=== PATIENT | female | born 1960 | race Two or more races ===

== ENCOUNTER 2020-03-31 15:37 | Inpatient (IN) | payer MEDICAID, OTHER ==
[~2020-03-31] VITALS: Ht 157.5 cm; Wt 68.2 kg
[2020-03-31 18:17] LABS: Basophils # (auto) 0 10 ^3/uL (0-0.2); Basophils % (auto) 0.1 % (0.0-2.0); Eosinophils # (auto) 0 10 ^3/uL (0-0.8); Hemoglobin 12.4 g/dL (12.2-16.2); Lymphocytes # (auto) 0.7 10 ^3/uL (0.4-5.4); Lymphocytes % (auto) 11.8 % (10.0-50.0); Mean Corpuscular Hemoglobin 32.9 pg (28.0-32.0); Mean Corpuscular Hgb Conc. 34.5 g/dL (32.0-36.0); Mean Corpuscular Volume 95.3 fL (80.0-100.0); Monocytes # (auto) 0.3 10 ^3/uL (0-1.3); Monocytes % (auto) 5.3 % (0.0-12.0); Neutrophils # (auto) 5.1 10 ^3/uL (1.6-8.6); Neutrophils % (auto) 82.8 % (37.0-80.0); Nucleated Red Blood Cells % 0.1 %; Platelet Count (auto) 143 10^3/uL (140-450); Red Blood Cells 3.78 10^6/uL (4.0-5.20); Red Cell Distribution Width 12.7 % (11.8-14.3); White Blood Cell 6.2 10^3/uL (4.4-10.8)
[2020-03-31 18:22] LABS: Albumin 3.5 g/dL (3.4-5.0); Anion Gap 11 (5-15); Blood Urea Nitrogen 10 mg/dL (7-18); Calcium 8.5 mg/dL (8.5-10.1); Carbon Dioxide 20 mmol/L (21-32); Chloride 101 mmol/L (98-107); Glucose 120 mg/dL (74-106); Potassium 3.6 mmol/L (3.5-5.1); Sodium 132 mmol/L (136-145)
[2020-03-31 18:24] LABS: Alanine Aminotransferase 12 U/L (13-56); BUN/Creatinine Ratio 16.7; GFR African American 133 mL/min; GFR Non-African American 110 mL/min
[2020-03-31 18:25] LABS: INR 0.91 (0.9-1.15)
[2020-03-31 18:36] LABS: Alkaline Phosphatase 95 U/L (45-117); Aspartate Aminotransferase 52 U/L (15-37); Bilirubin, Total 0.6 mg/dL (0.2-1.0); Total Protein 7.4 g/dL (6.4-8.2)
[2020-03-31 18:38] LABS: Magnesium 2.3 mg/dL (1.6-2.6)
[2020-03-31] MEDS ORDERED: REMDESIVIR PER PHARMACY 0 ML IV STA (22:21)
[2020-03-31] MEDS ORDERED: DexAMETHasone SOD PHOS 10MG/1ML VIAL INJ IV ONE (22:30)
[2020-03-31] MEDS ORDERED: NITROGLYCERIN 0.4 MG SL TAB SL PRN (23:30)
[2020-03-31] MEDS ORDERED: AZITHROMYCIN 500MG/D5WorNS 250ml IV SCH (23:30)
[2020-03-31] MEDS ORDERED: ONDANSETRON HCL 4 MG/2 ML VIAL IV PRN (23:30)
[2020-03-31] MEDS ORDERED: MORPHINE SULF INJ 2 MG/ML SYRINGE 1ML IV PRN (23:30)
[2020-04-01] MEDS ORDERED: DexAMETHasone SOD PHOS 4 MG/1ML SDV INJ ONE (00:03)
[2020-04-01 07:30] LABS: Basophils # (auto) 0 10 ^3/uL (0-0.2); Basophils % (auto) 0.1 % (0.0-2.0); Eosinophils # (auto) 0 10 ^3/uL (0-0.8); Hematocrit 37.2 % (36.0-46.0); Hemoglobin 12.6 g/dL (12.2-16.2); Lymphocytes # (auto) 0.3 10 ^3/uL (0.4-5.4); Lymphocytes % (auto) 7.1 % (10.0-50.0); Mean Corpuscular Hemoglobin 33.1 pg (28.0-32.0); Mean Corpuscular Hgb Conc. 33.8 g/dL (32.0-36.0); Mean Corpuscular Volume 98.1 fL (80.0-100.0); Monocytes # (auto) 0.1 10 ^3/uL (0-1.3); Monocytes % (auto) 3.2 % (0.0-12.0); Neutrophils # (auto) 4.1 10 ^3/uL (1.6-8.6); Neutrophils % (auto) 89.6 % (37.0-80.0); Platelet Count (auto) 138 10^3/uL (140-450); Red Cell Distribution Width 13.1 % (11.8-14.3); White Blood Cell 4.5 10^3/uL (4.4-10.8)
[2020-04-01 08:20] LABS: Albumin 3.2 g/dL (3.4-5.0); BUN/Creatinine Ratio 20.7; Bilirubin, Total 0.7 mg/dL (0.2-1.0); Calcium 8.6 mg/dL (8.5-10.1); Potassium 3.6 mmol/L (3.5-5.1); Total Protein 7.7 g/dL (6.4-8.2)
[2020-04-01] MEDS: BUDESONIDE (INHALATION) 180 MCG IH IN SCH ×2 (10:00→19:50)
[2020-04-01] MEDS ORDERED: ZINC SULFATE 220mg CAP or TAB PO SCH (10:00)
[2020-04-01] MEDS: ZINC SULFATE 220mg CAP or TAB PO SCH (11:30)
[2020-04-01] MEDS: DOXYCYCLINE 100MG/250ML 250 ML IV SCH ×2 (11:30→14:45)
[2020-04-01] MEDS: ENOXAPARIN SOD 40 MG/0.4 ML SYRINGE SC SCH (11:30)
[2020-04-01] MEDS: FAMOTIDINE 20 MG TAB PO SCH (11:30)
[2020-04-01] MEDS: CARBIDOPA W LEVODOPA 25/100mg TABLET PO SCH ×2 (11:30→14:00)
[2020-04-01] MEDS: DexAMETHasone SOD PHOS 10MG/1ML VIAL INJ IV SCH (11:30)
[2020-04-01] MEDS: ASCORBIC ACID 1,000 MG TAB PO SCH (11:30)
[2020-04-01] MEDS: CHOLECALCIFEROL (VITD3) 2,000 UNIT CAP PO SCH (11:30)
[2020-04-01] MEDS ORDERED: diphenhdrAMINE HCL 50 MG/1 ML VL IV PRN (12:30)
[2020-04-02] MEDS: CARBIDOPA W LEVODOPA 25/100mg TABLET PO SCH ×4 (01:41→21:36)
[2020-04-02] MEDS: FAMOTIDINE 20 MG TAB PO SCH ×3 (01:41→21:36)
[2020-04-02] MEDS: ENOXAPARIN SOD 40 MG/0.4 ML SYRINGE SC SCH ×3 (01:42→21:37)
[2020-04-02] MEDS: DOXYCYCLINE 100MG/250ML 250 ML IV SCH ×2 (05:13→15:46)
[2020-04-02] MEDS: DexAMETHasone SOD PHOS 10MG/1ML VIAL INJ IV SCH (11:23)
[2020-04-02] MEDS: ASCORBIC ACID 1,000 MG TAB PO SCH (11:25)
[2020-04-02] MEDS: ZINC SULFATE 220mg CAP or TAB PO SCH (11:25)
[2020-04-02] MEDS: CHOLECALCIFEROL (VITD3) 2,000 UNIT CAP PO SCH (11:25)
[2020-04-02] MEDS ORDERED: REMDESIVIR PER PHARMACY 0 ML IV SCH (13:15)
[2020-04-02] MEDS: BUDESONIDE (INHALATION) 180 MCG IH IN SCH ×2 (13:17→22:00)
[2020-04-02] MEDS ORDERED: REMDESIVIR 200 MG in NS 210ml LOADING DOSE ADULT IV ONE (15:00)
[2020-04-03] MEDS: DOXYCYCLINE 100MG/250ML 250 ML IV SCH ×2 (02:22→14:40)
[2020-04-03] MEDS: CARBIDOPA W LEVODOPA 25/100mg TABLET PO SCH ×3 (05:50→23:12)
[2020-04-03 07:08] LABS: Albumin 2.8 g/dL (3.4-5.0); Calcium 8.6 mg/dL (8.5-10.1); Potassium 3.8 mmol/L (3.5-5.1)
[2020-04-03 07:11] LABS: BUN/Creatinine Ratio 27.5; Bilirubin, Total 0.7 mg/dL (0.2-1.0); Total Protein 6.9 g/dL (6.4-8.2)
[2020-04-03] MEDS: ENOXAPARIN SOD 40 MG/0.4 ML SYRINGE SC SCH ×2 (10:00→23:12)
[2020-04-03] MEDS: CHOLECALCIFEROL (VITD3) 2,000 UNIT CAP PO SCH (10:00)
[2020-04-03] MEDS: FAMOTIDINE 20 MG TAB PO SCH ×2 (10:00→23:12)
[2020-04-03] MEDS: ASCORBIC ACID 1,000 MG TAB PO SCH (10:00)
[2020-04-03] MEDS: DexAMETHasone SOD PHOS 10MG/1ML VIAL INJ IV SCH (10:00)
[2020-04-03] MEDS: ZINC SULFATE 220mg CAP or TAB PO SCH (10:00)
[2020-04-03] MEDS: BUDESONIDE (INHALATION) 180 MCG IH IN SCH (10:11)
[2020-04-03] MEDS ORDERED: FUROSEMIDE 40 MG/4 ML VIAL IV ONE (13:45)
[2020-04-03] MEDS ORDERED: POTASSIUM CHL 20 Meq TABLET PO ONE (13:45)
[2020-04-03] MEDS: REMDESIVIR 100 MG in SODIUM CHL 0.9% 250 ML IV SCH (15:00)
[2020-04-03 21:52] VITALS: BP 120/70
[2020-04-04] VITALS (8 sets, daily range): BP systolic 106–134; BP diastolic 42–78
[2020-04-04] MEDS ORDERED: CARB25TA22 PO ×2 (02:05→10:51)
[2020-04-04] MEDS: BUDESONIDE (INHALATION) 180 MCG IH IN SCH ×3 (02:29→21:50)
[2020-04-04] MEDS: DOXYCYCLINE 100MG/250ML 250 ML IV SCH ×2 (02:30→13:54)
[2020-04-04] MEDS ORDERED: CARBIDOPA W LEVODOPA 25/100mg TABLET PO SCH (06:00)
[2020-04-04] MEDS: CARBIDOPA W LEVODOPA 25/100mg TABLET PO SCH ×6 (06:20→23:13)
[2020-04-04 06:49] LABS: Basophils # (auto) 0 10 ^3/uL (0-0.2); Eosinophils # (auto) 0 10 ^3/uL (0-0.8); Hemoglobin 12.3 g/dL (12.2-16.2); Lymphocytes # (auto) 0.3 10 ^3/uL (0.4-5.4); Lymphocytes % (auto) 6.3 % (10.0-50.0); Mean Corpuscular Hemoglobin 33.1 pg (28.0-32.0); Mean Corpuscular Hgb Conc. 35.3 g/dL (32.0-36.0); Mean Corpuscular Volume 93.9 fL (80.0-100.0); Monocytes # (auto) 0.5 10 ^3/uL (0-1.3); Monocytes % (auto) 11.5 % (0.0-12.0); Neutrophils # (auto) 3.5 10 ^3/uL (1.6-8.6); Neutrophils % (auto) 82.2 % (37.0-80.0); Platelet Count (auto) 206 10^3/uL (140-450); Red Blood Cells 3.72 10^6/uL (4.0-5.20); Red Cell Distribution Width 12.5 % (11.8-14.3); White Blood Cell 4.2 10^3/uL (4.4-10.8)
[2020-04-04 07:08] LABS: Potassium 3.7 mmol/L (3.5-5.1)
[2020-04-04 07:16] LABS: Albumin 2.9 g/dL (3.4-5.0); BUN/Creatinine Ratio 29.3; Bilirubin, Total 0.6 mg/dL (0.2-1.0); Calcium 8.6 mg/dL (8.5-10.1)
[2020-04-04] MEDS: FAMOTIDINE 20 MG TAB PO SCH ×2 (09:26→21:50)
[2020-04-04] MEDS: DexAMETHasone SOD PHOS 10MG/1ML VIAL INJ IV SCH (09:26)
[2020-04-04] MEDS: ENOXAPARIN SOD 40 MG/0.4 ML SYRINGE SC SCH ×2 (09:26→21:50)
[2020-04-04] MEDS: FUROSEMIDE 40 MG/4 ML VIAL IV SCH (09:26)
[2020-04-04] MEDS: ZINC SULFATE 220mg CAP or TAB PO SCH (09:26)
[2020-04-04] MEDS: POTASSIUM CHL 20 Meq TABLET PO SCH (09:27)
[2020-04-04] MEDS: ASCORBIC ACID 1,000 MG TAB PO SCH (09:27)
[2020-04-04] MEDS: CHOLECALCIFEROL (VITD3) 2,000 UNIT CAP PO SCH (09:27)
[2020-04-04] MEDS: ALBUTEROL SULF HFA 90MCG INH 200DOSE IN PRN (09:55)
[2020-04-04] MEDS ORDERED: LATA0.0019 EACHEYE (10:51)
[2020-04-04] MEDS ORDERED: DORZ2SOL18 EACHEYE (10:51)
[2020-04-04] MEDS ORDERED: CARB25TA77 PO (10:51)
[2020-04-04] MEDS: REMDESIVIR 100 MG in SODIUM CHL 0.9% 250 ML IV SCH (14:51)
[2020-04-04] MEDS: DORZOLAMIDE HCL 2% OPTH(EYE) SOL 10ML EACHEYE SCH (21:49)
[2020-04-04] MEDS: CARBIDOPA LEVODOPA PO SCH (21:50)
[2020-04-04] MEDS: LATANOPROST 0.005 % OPTH(EYE) SOL 2.5ML EACHEYE SCH (21:50)
[2020-04-04] MEDS: TEMAZEPAM 15 MG CAP PO PRN (23:47)
[2020-04-05] VITALS: BP 130/84
[2020-04-05] MEDS: DOXYCYCLINE 100MG/250ML 250 ML IV SCH ×2 (03:05→19:13)
[2020-04-05] MEDS: CARBIDOPA W LEVODOPA 25/100mg TABLET PO SCH ×6 (03:05→19:13)
[2020-04-05] MEDS ORDERED: PATIENTS OWN MEDICATION PO SCH (10:00)
[2020-04-05] MEDS: BUDESONIDE (INHALATION) 180 MCG IH IN SCH ×2 (10:00→21:51)
[2020-04-05] MEDS: DORZOLAMIDE HCL 2% OPTH(EYE) SOL 10ML EACHEYE SCH ×2 (11:10→21:51)
[2020-04-05] MEDS: DexAMETHasone SOD PHOS 10MG/1ML VIAL INJ IV SCH (11:11)
[2020-04-05] MEDS: FUROSEMIDE 40 MG/4 ML VIAL IV SCH (11:12)
[2020-04-05] MEDS: FAMOTIDINE 20 MG TAB PO SCH ×2 (11:13→21:49)
[2020-04-05] MEDS: POTASSIUM CHL 20 Meq TABLET PO SCH (11:13)
[2020-04-05] MEDS: ZINC SULFATE 220mg CAP or TAB PO SCH (11:13)
[2020-04-05] MEDS: ENOXAPARIN SOD 40 MG/0.4 ML SYRINGE SC SCH ×2 (11:14→21:51)
[2020-04-05] MEDS: ASCORBIC ACID 1,000 MG TAB PO SCH (11:14)
[2020-04-05] MEDS: CHOLECALCIFEROL (VITD3) 2,000 UNIT CAP PO SCH (11:14)
[2020-04-05] MEDS: REMDESIVIR 100 MG in SODIUM CHL 0.9% 250 ML IV SCH (15:33)
[2020-04-05 16:00] VITALS: BP_SYST 138; BP_SYST 90; BP_DIAS 53; BP_DIAS 62
[2020-04-05] MEDS: ACETAMINOPHEN 325 MG TAB PO PRN (21:49)
[2020-04-05] MEDS: TEMAZEPAM 15 MG CAP PO PRN (21:49)
[2020-04-05] MEDS: CARBIDOPA LEVODOPA PO SCH (21:50)
[2020-04-05] MEDS: LATANOPROST 0.005 % OPTH(EYE) SOL 2.5ML EACHEYE SCH (21:51)
[2020-04-05 22:00] VITALS: BP 125/56
[2020-04-06] MEDS: CARBIDOPA W LEVODOPA 25/100mg TABLET PO SCH ×8 (00:02→23:49)
[2020-04-06] MEDS: DOXYCYCLINE 100MG/250ML 250 ML IV SCH ×2 (02:45→13:41)
[2020-04-06 08:00] VITALS: BP 119/69
[2020-04-06 08:18] LABS: Albumin 2.8 g/dL (3.4-5.0); Calcium 8.9 mg/dL (8.5-10.1); Potassium 3.7 mmol/L (3.5-5.1)
[2020-04-06 08:22] LABS: BUN/Creatinine Ratio 57.4; Total Protein 7.1 g/dL (6.4-8.2)
[2020-04-06] MEDS: ZINC SULFATE 220mg CAP or TAB PO SCH (09:31)
[2020-04-06] MEDS: DexAMETHasone SOD PHOS 10MG/1ML VIAL INJ IV SCH (09:31)
[2020-04-06] MEDS: POTASSIUM CHL 20 Meq TABLET PO SCH (09:31)
[2020-04-06] MEDS: BUDESONIDE (INHALATION) 180 MCG IH IN SCH ×2 (09:31→20:50)
[2020-04-06] MEDS: FAMOTIDINE 20 MG TAB PO SCH ×2 (09:31→21:34)
[2020-04-06] MEDS: FUROSEMIDE 40 MG/4 ML VIAL IV SCH (09:31)
[2020-04-06] MEDS: ASCORBIC ACID 1,000 MG TAB PO SCH (09:31)
[2020-04-06] MEDS: CHOLECALCIFEROL (VITD3) 2,000 UNIT CAP PO SCH (09:32)
[2020-04-06] MEDS: ACETAMINOPHEN 325 MG TAB PO PRN (09:41)
[2020-04-06] MEDS: DORZOLAMIDE HCL 2% OPTH(EYE) SOL 10ML EACHEYE SCH ×2 (11:00→21:35)
[2020-04-06] MEDS: ENOXAPARIN SOD 40 MG/0.4 ML SYRINGE SC SCH ×2 (13:30→21:34)
[2020-04-06] MEDS: REMDESIVIR 100 MG in SODIUM CHL 0.9% 250 ML IV SCH (15:30)
[2020-04-06 15:53] VITALS: BP 130/71
[2020-04-06] MEDS: LORazepam 2MG/ML-1ML VIAL IV PRN (18:59)
[2020-04-06] MEDS: CARBIDOPA LEVODOPA PO SCH (21:34)
[2020-04-06] MEDS: LATANOPROST 0.005 % OPTH(EYE) SOL 2.5ML EACHEYE SCH (21:34)
[2020-04-07] VITALS: BP 108/62
[2020-04-07] MEDS: DOXYCYCLINE 100MG/250ML 250 ML IV SCH ×2 (03:04→14:45)
[2020-04-07] MEDS: CARBIDOPA W LEVODOPA 25/100mg TABLET PO SCH ×7 (03:04→23:46)
[2020-04-07 08:00] VITALS: BP 103/49
[2020-04-07] MEDS: DORZOLAMIDE HCL 2% OPTH(EYE) SOL 10ML EACHEYE SCH ×2 (09:29→21:30)
[2020-04-07] MEDS: ENOXAPARIN SOD 40 MG/0.4 ML SYRINGE SC SCH ×2 (09:30→22:01)
[2020-04-07] MEDS: ZINC SULFATE 220mg CAP or TAB PO SCH (09:31)
[2020-04-07] MEDS: POTASSIUM CHL 20 Meq TABLET PO SCH (09:31)
[2020-04-07] MEDS: FAMOTIDINE 20 MG TAB PO SCH ×2 (09:31→22:01)
[2020-04-07] MEDS: DexAMETHasone SOD PHOS 10MG/1ML VIAL INJ IV SCH (09:31)
[2020-04-07] MEDS: FUROSEMIDE 40 MG/4 ML VIAL IV SCH (09:31)
[2020-04-07] MEDS: ASCORBIC ACID 1,000 MG TAB PO SCH (09:31)
[2020-04-07] MEDS: CHOLECALCIFEROL (VITD3) 2,000 UNIT CAP PO SCH (09:32)
[2020-04-07] MEDS: BUDESONIDE (INHALATION) 180 MCG IH IN SCH ×2 (09:32→21:40)
[2020-04-07 16:00] VITALS: BP 107/60
[2020-04-07] MEDS ORDERED: MORPHINE SULF INJ 2 MG/ML SYRINGE 1ML IV PRN (17:15)
[2020-04-07] MEDS: HYDROcodone-ACET 5/325MG TAB PO PRN (18:01)
[2020-04-07] MEDS: LATANOPROST 0.005 % OPTH(EYE) SOL 2.5ML EACHEYE SCH (21:30)
[2020-04-07] MEDS: CARBIDOPA LEVODOPA PO SCH (22:01)
[2020-04-08] VITALS: BP 110/70
[2020-04-08] MEDS: DOXYCYCLINE 100MG/250ML 250 ML IV SCH ×2 (03:01→15:12)
[2020-04-08] MEDS: CARBIDOPA W LEVODOPA 25/100mg TABLET PO SCH ×7 (03:01→23:43)
[2020-04-08] MEDS: HYDROcodone-ACET 5/325MG TAB PO PRN ×2 (03:02→10:14)
[2020-04-08 08:00] VITALS: BP_SYST 111; BP_SYST 184; BP_DIAS 42; BP_DIAS 94
[2020-04-08] MEDS: POTASSIUM CHL 20 Meq TABLET PO SCH (10:00)
[2020-04-08] MEDS: FUROSEMIDE 40 MG/4 ML VIAL IV SCH (10:00)
[2020-04-08] MEDS: ALBUTEROL SULF HFA 90MCG INH 200DOSE IN PRN ×4 (10:03→20:48)
[2020-04-08] MEDS: BUDESONIDE (INHALATION) 180 MCG IH IN SCH ×3 (10:03→20:51)
[2020-04-08] MEDS: DexAMETHasone SOD PHOS 10MG/1ML VIAL INJ IV SCH (10:12)
[2020-04-08] MEDS: DORZOLAMIDE HCL 2% OPTH(EYE) SOL 10ML EACHEYE SCH ×2 (10:12→21:20)
[2020-04-08] MEDS: ZINC SULFATE 220mg CAP or TAB PO SCH (10:13)
[2020-04-08] MEDS: ENOXAPARIN SOD 40 MG/0.4 ML SYRINGE SC SCH ×2 (10:13→21:21)
[2020-04-08] MEDS: FAMOTIDINE 20 MG TAB PO SCH ×3 (10:13→21:39)
[2020-04-08] MEDS: CHOLECALCIFEROL (VITD3) 2,000 UNIT CAP PO SCH (10:13)
[2020-04-08] MEDS: ASCORBIC ACID 1,000 MG TAB PO SCH (10:13)
[2020-04-08] MEDS ORDERED: IOHEXOL 350 MG/ML 100ML IJ ONE (11:15)
[2020-04-08 16:00] VITALS: BP 95/60
[2020-04-08] MEDS: LORazepam 2MG/ML-1ML VIAL IV PRN (17:58)
[2020-04-08] MEDS ORDERED: FUROSEMIDE 40 MG/4 ML VIAL IV ONE (20:00)
[2020-04-08] MEDS: LATANOPROST 0.005 % OPTH(EYE) SOL 2.5ML EACHEYE SCH (21:20)
[2020-04-08] MEDS: CARBIDOPA LEVODOPA PO SCH (21:39)
[2020-04-09] VITALS: BP 94/64
[2020-04-09] MEDS: DOXYCYCLINE 100MG/250ML 250 ML IV SCH (02:44)
[2020-04-09] MEDS: CARBIDOPA W LEVODOPA 25/100mg TABLET PO SCH ×7 (02:44→23:55)
[2020-04-09 06:44] LABS: Potassium 3.7 mmol/L (3.5-5.1)
[2020-04-09] MEDS: BUDESONIDE (INHALATION) 180 MCG IH IN SCH ×2 (06:50→07:10)
[2020-04-09 07:47] LABS: BUN/Creatinine Ratio 48.4
[2020-04-09 08:00] VITALS: BP 106/60
[2020-04-09] MEDS: DORZOLAMIDE HCL 2% OPTH(EYE) SOL 10ML EACHEYE SCH ×2 (09:58→20:45)
[2020-04-09] MEDS: DexAMETHasone SOD PHOS 10MG/1ML VIAL INJ IV SCH (09:58)
[2020-04-09] MEDS: ASCORBIC ACID 1,000 MG TAB PO SCH (09:59)
[2020-04-09] MEDS: CHOLECALCIFEROL (VITD3) 2,000 UNIT CAP PO SCH (09:59)
[2020-04-09] MEDS: FAMOTIDINE 20 MG TAB PO SCH ×2 (09:59→20:46)
[2020-04-09] MEDS: ZINC SULFATE 220mg CAP or TAB PO SCH (09:59)
[2020-04-09] MEDS: FUROSEMIDE 40 MG/4 ML VIAL IV SCH (09:59)
[2020-04-09] MEDS: POTASSIUM CHL 20 Meq TABLET PO SCH (09:59)
[2020-04-09] MEDS: ENOXAPARIN SOD 40 MG/0.4 ML SYRINGE SC SCH ×2 (10:00→20:46)
[2020-04-09 16:20] VITALS: BP 93/62
[2020-04-09] MEDS: LATANOPROST 0.005 % OPTH(EYE) SOL 2.5ML EACHEYE SCH (20:45)
[2020-04-09] MEDS: LORazepam 2MG/ML-1ML VIAL IV PRN (20:46)
[2020-04-09] MEDS: CARBIDOPA LEVODOPA PO SCH (20:46)
[2020-04-09] MEDS ORDERED: NOREPINEPHRINE 8 MG/250ML KIT 250 ML IV ONE (20:47)
[2020-04-10] VITALS: BP 102/75
[2020-04-10] MEDS: CARBIDOPA W LEVODOPA 25/100mg TABLET PO SCH ×7 (02:40→23:45)
[2020-04-10] MEDS: ALBUTEROL SULF HFA 90MCG INH 200DOSE IN PRN (06:50)
[2020-04-10] MEDS: BUDESONIDE (INHALATION) 180 MCG IH IN SCH ×2 (06:50→22:00)
[2020-04-10 08:20] VITALS: BP_SYST 106; BP_SYST 142; BP_DIAS 72; BP_DIAS 77
[2020-04-10] MEDS: LORazepam 2MG/ML-1ML VIAL IV PRN ×2 (10:50→17:31)
[2020-04-10] MEDS: DexAMETHasone SOD PHOS 10MG/1ML VIAL INJ IV SCH (10:50)
[2020-04-10] MEDS: DORZOLAMIDE HCL 2% OPTH(EYE) SOL 10ML EACHEYE SCH ×2 (10:50→22:32)
[2020-04-10] MEDS: ZINC SULFATE 220mg CAP or TAB PO SCH (10:50)
[2020-04-10] MEDS: POTASSIUM CHL 20 Meq TABLET PO SCH (10:51)
[2020-04-10] MEDS: ASCORBIC ACID 1,000 MG TAB PO SCH (10:51)
[2020-04-10] MEDS: ENOXAPARIN SOD 40 MG/0.4 ML SYRINGE SC SCH ×2 (10:51→22:30)
[2020-04-10] MEDS: CHOLECALCIFEROL (VITD3) 2,000 UNIT CAP PO SCH (10:51)
[2020-04-10] MEDS: FAMOTIDINE 20 MG TAB PO SCH ×3 (10:51→22:31)
[2020-04-10] MEDS: FUROSEMIDE 40 MG/4 ML VIAL IV SCH (10:54)
[2020-04-10] MEDS ORDERED: guaiFENesin-DM 100/10mg/5ml SYR PO PRN (11:45)
[2020-04-10 13:37] LABS: CRP High Sensitivity 12.8 mg/dL (< 0.3)
[2020-04-10 16:29] VITALS: BP 108/56
[2020-04-10] MEDS ORDERED: diphenhdrAMINE HCL 50 MG/1 ML VL IV ONE (20:00)
[2020-04-10] MEDS ORDERED: ACETAMINOPHEN 650 mg PER 20.3 mL UD PO ONE (20:00)
[2020-04-10] MEDS ORDERED: methylPREDNISolone SOD SUCC 40 MG/ML VL IV ONE (20:00)
[2020-04-10] MEDS ORDERED: TOCILIZUMAB 400 MG in SODIUM CHL 0.9% 80 ML IV ONE (20:30)
[2020-04-10] MEDS: CARBIDOPA LEVODOPA PO SCH (22:00)
[2020-04-10] MEDS: LATANOPROST 0.005 % OPTH(EYE) SOL 2.5ML EACHEYE SCH (22:32)
[2020-04-10 23:53] VITALS: BP 108/64
[2020-04-11] MEDS: LORazepam 2MG/ML-1ML VIAL IV PRN ×2 (00:50→17:39)
[2020-04-11] MEDS: CARBIDOPA W LEVODOPA 25/100mg TABLET PO SCH ×6 (03:00→18:18)
[2020-04-11 08:00] VITALS: BP 115/68
[2020-04-11] MEDS ORDERED: methylPREDNISolone SOD SUCC 40 MG/ML VL IV ONE (08:30)
[2020-04-11] MEDS ORDERED: ACETAMINOPHEN 650 mg PER 20.3 mL UD PO ONE (08:30)
[2020-04-11] MEDS ORDERED: diphenhdrAMINE HCL 50 MG/1 ML VL IV ONE (08:30)
[2020-04-11] MEDS ORDERED: TOCILIZUMAB 400 MG in SODIUM CHL 0.9% 80 ML IV ONE (09:00)
[2020-04-11] MEDS: BUDESONIDE (INHALATION) 180 MCG IH IN SCH ×2 (10:00→21:53)
[2020-04-11] MEDS: FUROSEMIDE 40 MG/4 ML VIAL IV SCH (10:49)
[2020-04-11] MEDS: DORZOLAMIDE HCL 2% OPTH(EYE) SOL 10ML EACHEYE SCH ×2 (10:49→21:36)
[2020-04-11] MEDS: POTASSIUM CHL 20 Meq TABLET PO SCH (10:50)
[2020-04-11] MEDS: ASCORBIC ACID 1,000 MG TAB PO SCH (10:50)
[2020-04-11] MEDS: CHOLECALCIFEROL (VITD3) 2,000 UNIT CAP PO SCH (10:50)
[2020-04-11] MEDS: FAMOTIDINE 20 MG TAB PO SCH ×3 (10:50→21:42)
[2020-04-11] MEDS: ZINC SULFATE 220mg CAP or TAB PO SCH (10:50)
[2020-04-11] MEDS: ENOXAPARIN SOD 40 MG/0.4 ML SYRINGE SC SCH ×2 (10:51→21:37)
[2020-04-11] MEDS: HYDROcodone-ACET 5/325MG TAB PO PRN (15:10)
[2020-04-11 16:00] VITALS: BP 149/84
[2020-04-11] MEDS: ALBUTEROL SULF HFA 90MCG INH 200DOSE IN PRN (17:45)
[2020-04-11] MEDS: LATANOPROST 0.005 % OPTH(EYE) SOL 2.5ML EACHEYE SCH (21:36)
[2020-04-11] MEDS: CARBIDOPA LEVODOPA PO SCH (21:37)
[2020-04-11 23:43] VITALS: BP 116/78
[2020-04-12] MEDS: LORazepam 2MG/ML-1ML VIAL IV PRN ×3 (00:37→21:25)
[2020-04-12] MEDS: CARBIDOPA W LEVODOPA 25/100mg TABLET PO SCH ×7 (02:35→18:00)
[2020-04-12 08:00] VITALS: BP 107/55
[2020-04-12] MEDS: ZINC SULFATE 220mg CAP or TAB PO SCH (08:57)
[2020-04-12] MEDS: POTASSIUM CHL 20 Meq TABLET PO SCH (08:57)
[2020-04-12] MEDS: ASCORBIC ACID 1,000 MG TAB PO SCH (08:58)
[2020-04-12] MEDS: CHOLECALCIFEROL (VITD3) 2,000 UNIT CAP PO SCH (08:58)
[2020-04-12] MEDS: FAMOTIDINE 20 MG TAB PO SCH ×2 (08:58→21:58)
[2020-04-12] MEDS: BUDESONIDE (INHALATION) 180 MCG IH IN SCH ×2 (09:00→11:50)
[2020-04-12] MEDS: FUROSEMIDE 40 MG/4 ML VIAL IV SCH (10:23)
[2020-04-12] MEDS: ENOXAPARIN SOD 40 MG/0.4 ML SYRINGE SC SCH ×2 (10:24→21:58)
[2020-04-12] MEDS: DORZOLAMIDE HCL 2% OPTH(EYE) SOL 10ML EACHEYE SCH ×2 (10:40→21:57)
[2020-04-12] MEDS ORDERED: HALOPERIDOL LACTATE 5 MG/ML INJ VIAL IM ONE (15:00)
[2020-04-12] MEDS ORDERED: MORPHINE SULF INJ 2 MG/ML SYRINGE 1ML IV ONE (15:00)
[2020-04-12] MEDS ORDERED: LORazepam 2MG/ML-1ML VIAL IV ONE (15:00)
[2020-04-12] MEDS: DOXYCYCLINE 100MG/250ML 250 ML IV SCH (15:52)
[2020-04-12 16:00] VITALS: BP 103/76
[2020-04-12] MEDS: CARBIDOPA LEVODOPA PO SCH (21:58)
[2020-04-12] MEDS: LATANOPROST 0.005 % OPTH(EYE) SOL 2.5ML EACHEYE SCH (21:58)
[2020-04-13] VITALS: BP 116/78
[2020-04-13] MEDS: HALOPERIDOL LACTATE 5 MG/ML INJ VIAL IM PRN (02:07)
[2020-04-13] MEDS: CARBIDOPA W LEVODOPA 25/100mg TABLET PO SCH ×7 (02:38→17:43)
[2020-04-13] MEDS: DOXYCYCLINE 100MG/250ML 250 ML IV SCH ×2 (02:38→17:14)
[2020-04-13] MEDS: BUDESONIDE (INHALATION) 180 MCG IH IN SCH ×2 (07:14→20:38)
[2020-04-13 08:03] VITALS: BP 98/72
[2020-04-13] MEDS: POTASSIUM CHL 20 Meq TABLET PO SCH (09:25)
[2020-04-13] MEDS: ASCORBIC ACID 1,000 MG TAB PO SCH (09:25)
[2020-04-13] MEDS: ZINC SULFATE 220mg CAP or TAB PO SCH (09:25)
[2020-04-13] MEDS: CHOLECALCIFEROL (VITD3) 2,000 UNIT CAP PO SCH (09:25)
[2020-04-13] MEDS: FAMOTIDINE 20 MG TAB PO SCH ×2 (09:25→22:00)
[2020-04-13] MEDS: FUROSEMIDE 40 MG/4 ML VIAL IV SCH (10:00)
[2020-04-13] MEDS: DexAMETHasone SOD PHOS 10MG/1ML VIAL INJ IV SCH (10:32)
[2020-04-13] MEDS: ENOXAPARIN SOD 40 MG/0.4 ML SYRINGE SC SCH ×2 (10:32→22:34)
[2020-04-13] MEDS: LORazepam 2MG/ML-1ML VIAL IV PRN (11:00)
[2020-04-13] MEDS: DORZOLAMIDE HCL 2% OPTH(EYE) SOL 10ML EACHEYE SCH ×2 (14:14→22:34)
[2020-04-13 16:09] VITALS: BP 97/76
[2020-04-13] MEDS: MORPHINE SULF INJ 2 MG/ML SYRINGE 1ML IV PRN ×2 (16:58→22:40)
[2020-04-13] MEDS: CARBIDOPA LEVODOPA PO SCH (22:00)
[2020-04-13] MEDS: LATANOPROST 0.005 % OPTH(EYE) SOL 2.5ML EACHEYE SCH (22:34)
[2020-04-14] VITALS: BP 106/84
[2020-04-14] MEDS: LORazepam 2MG/ML-1ML VIAL IV PRN ×3 (01:29→19:12)
[2020-04-14 02:30] VITALS: BP 122/77
[2020-04-14] MEDS: DOXYCYCLINE 100MG/250ML 250 ML IV SCH ×2 (02:36→15:42)
[2020-04-14] MEDS: MORPHINE SULF INJ 2 MG/ML SYRINGE 1ML IV PRN ×5 (02:36→21:04)
[2020-04-14] MEDS: CARBIDOPA W LEVODOPA 25/100mg TABLET PO SCH ×7 (02:37→17:29)
[2020-04-14 06:42] VITALS: BP 140/73
[2020-04-14] MEDS: BUDESONIDE (INHALATION) 180 MCG IH IN SCH ×2 (06:42→19:43)
[2020-04-14 06:50] VITALS: BP 140/73
[2020-04-14 08:00] VITALS: BP 114/57
[2020-04-14] MEDS: DORZOLAMIDE HCL 2% OPTH(EYE) SOL 10ML EACHEYE SCH ×2 (09:39→21:03)
[2020-04-14] MEDS: FUROSEMIDE 40 MG/4 ML VIAL IV SCH (09:39)
[2020-04-14] MEDS: ENOXAPARIN SOD 40 MG/0.4 ML SYRINGE SC SCH (09:39)
[2020-04-14] MEDS: DexAMETHasone SOD PHOS 10MG/1ML VIAL INJ IV SCH (09:40)
[2020-04-14] MEDS: CHOLECALCIFEROL (VITD3) 2,000 UNIT CAP PO SCH (09:42)
[2020-04-14] MEDS: ASCORBIC ACID 1,000 MG TAB PO SCH (09:43)
[2020-04-14] MEDS: FAMOTIDINE 20 MG TAB PO SCH (09:43)
[2020-04-14] MEDS: ZINC SULFATE 220mg CAP or TAB PO SCH (09:43)
[2020-04-14] MEDS: POTASSIUM CHL 20 Meq TABLET PO SCH (09:43)
[2020-04-14] MEDS ORDERED: TPN PER PHARMACY 0 ML IV SCH (15:15)
[2020-04-14 16:00] VITALS: BP 128/57
[2020-04-14] MEDS: AMINO ACID INFUSION IN D10W 1,000 ML IV NR (21:03)
[2020-04-14] MEDS: LATANOPROST 0.005 % OPTH(EYE) SOL 2.5ML EACHEYE SCH (21:03)
[2020-04-14] MEDS: ENOXAPARIN SOD 60 MG/0.6 ML SYRINGE SC SCH (21:04)
[2020-04-14] MEDS: FAMOTIDINE (10MG/ML) 2ML VL IV SCH (21:04)
[2020-04-14] MEDS: CARBIDOPA LEVODOPA PO SCH (21:04)
[2020-04-14] MEDS ORDERED: LORazepam 2MG/ML-1ML VIAL IV PRN (22:00)
[2020-04-15] VITALS: BP 101/87
[2020-04-15] MEDS ORDERED: DEXTROSE (50%) 50ML SYRG IV SCH
[2020-04-15 00:26] VITALS: BP 134/72
[2020-04-15] MEDS: InsuLIN REG 1unit/0.01ml Soln (100units/ml) SC SCH ×4 (01:06→18:42)
[2020-04-15] MEDS: MORPHINE SULF INJ 2 MG/ML SYRINGE 1ML IV PRN ×5 (01:11→22:56)
[2020-04-15] MEDS: ACCU-CHEK COMFORT CURVE STRIP VI SCH ×4 (01:11→18:00)
[2020-04-15] MEDS: CARBIDOPA W LEVODOPA 25/100mg TABLET PO SCH ×7 (03:00→18:00)
[2020-04-15] MEDS: DOXYCYCLINE 100MG/250ML 250 ML IV SCH ×2 (03:06→15:05)
[2020-04-15] MEDS: LORazepam 2MG/ML-1ML VIAL IV PRN ×2 (04:37→13:16)
[2020-04-15] MEDS: ALBUTEROL SULF HFA 90MCG INH 200DOSE IN PRN (06:31)
[2020-04-15] MEDS: BUDESONIDE (INHALATION) 180 MCG IH IN SCH ×2 (06:31→22:00)
[2020-04-15 06:55] LABS: Basophils # (auto) 0 10 ^3/uL (0-0.2); Basophils % (auto) 0.1 % (0.0-2.0); Eosinophils # (auto) 0 10 ^3/uL (0-0.8); Eosinophils % (auto) 0.4 % (0.0-7.0); Hematocrit 41.9 % (36.0-46.0); Hemoglobin 14.2 g/dL (12.2-16.2); Lymphocytes # (auto) 0.2 10 ^3/uL (0.4-5.4); Lymphocytes % (auto) 2.6 % (10.0-50.0); Mean Corpuscular Hemoglobin 32.7 pg (28.0-32.0); Mean Corpuscular Volume 96.2 fL (80.0-100.0); Monocytes # (auto) 0.3 10 ^3/uL (0-1.3); Monocytes % (auto) 3.4 % (0.0-12.0); Neutrophils # (auto) 8.7 10 ^3/uL (1.6-8.6); Neutrophils % (auto) 93.5 % (37.0-80.0); Platelet Count (auto) 236 10^3/uL (140-450); Red Blood Cells 4.35 10^6/uL (4.0-5.20); Red Cell Distribution Width 12.8 % (11.8-14.3); White Blood Cell 9.3 10^3/uL (4.4-10.8)
[2020-04-15 07:55] VITALS: BP 110/76
[2020-04-15] MEDS: FUROSEMIDE 40 MG/4 ML VIAL IV SCH (09:34)
[2020-04-15] MEDS: DexAMETHasone SOD PHOS 10MG/1ML VIAL INJ IV SCH (09:35)
[2020-04-15] MEDS: FAMOTIDINE (10MG/ML) 2ML VL IV SCH ×2 (09:36→21:05)
[2020-04-15] MEDS: ENOXAPARIN SOD 60 MG/0.6 ML SYRINGE SC SCH ×2 (09:36→21:05)
[2020-04-15] MEDS: DORZOLAMIDE HCL 2% OPTH(EYE) SOL 10ML EACHEYE SCH ×2 (09:36→21:05)
[2020-04-15 09:41] LABS: Potassium 3.2 mmol/L (3.5-5.1)
[2020-04-15 10:00] LABS: Albumin 2.7 g/dL (3.4-5.0); BUN/Creatinine Ratio 71.2; Bilirubin, Total 0.8 mg/dL (0.2-1.0); Calcium 8.9 mg/dL (8.5-10.1); Magnesium 2.6 mg/dL (1.6-2.6); Total Protein 7.1 g/dL (6.4-8.2)
[2020-04-15] MEDS ORDERED: POTASSIUM CHL 20MEQ/100ML 100 ML IV ONE (10:45)
[2020-04-15] MEDS ORDERED: POTASSIUM PHOSPHATE 22 MEQ in SODIUM CHL 0.9% 100 ML IV ONE (13:00)
[2020-04-15 16:03] VITALS: BP 108/70
[2020-04-15] MEDS: AMINO ACID INFUSION IN D10W 1,000 ML IV NR (19:49)
[2020-04-15] MEDS ORDERED: PPN PER PHARMACY IV NR ×8 (20:00)
[2020-04-15] MEDS: CARBIDOPA LEVODOPA PO SCH (20:57)
[2020-04-15] MEDS: LATANOPROST 0.005 % OPTH(EYE) SOL 2.5ML EACHEYE SCH (21:05)
[2020-04-16] VITALS: BP 109/76
[2020-04-16] MEDS: ALBUTEROL SULF HFA 90MCG INH 200DOSE IN PRN (00:57)
[2020-04-16] MEDS: ACCU-CHEK COMFORT CURVE STRIP VI SCH ×5 (01:16→23:22)
[2020-04-16] MEDS: InsuLIN REG 1unit/0.01ml Soln (100units/ml) SC SCH ×5 (01:17→23:19)
[2020-04-16] MEDS: CARBIDOPA W LEVODOPA 25/100mg TABLET PO SCH ×8 (03:00→23:22)
[2020-04-16] MEDS: DOXYCYCLINE 100MG/250ML 250 ML IV SCH ×2 (03:17→15:15)
[2020-04-16] MEDS: MORPHINE SULF INJ 2 MG/ML SYRINGE 1ML IV PRN ×3 (05:33→23:01)
[2020-04-16] MEDS: LORazepam 2MG/ML-1ML VIAL IV PRN ×2 (06:22→20:13)
[2020-04-16 07:33] LABS: Potassium 3.3 mmol/L (3.5-5.1)
[2020-04-16 07:55] LABS: Albumin 2.4 g/dL (3.4-5.0); BUN/Creatinine Ratio 76.7; Bilirubin, Total 0.9 mg/dL (0.2-1.0); Calcium 8.5 mg/dL (8.5-10.1); Magnesium 2.4 mg/dL (1.6-2.6); Phosphorus 3.4 mg/dL (2.5-4.90); Total Protein 6.5 g/dL (6.4-8.2)
[2020-04-16 08:00] VITALS: BP 120/64
[2020-04-16] MEDS: BUDESONIDE (INHALATION) 180 MCG IH IN SCH ×2 (09:46→22:00)
[2020-04-16] MEDS: DORZOLAMIDE HCL 2% OPTH(EYE) SOL 10ML EACHEYE SCH ×2 (09:56→20:49)
[2020-04-16] MEDS: FAMOTIDINE (10MG/ML) 2ML VL IV SCH ×2 (09:57→20:50)
[2020-04-16] MEDS: ENOXAPARIN SOD 60 MG/0.6 ML SYRINGE SC SCH ×2 (09:57→20:50)
[2020-04-16] MEDS: DexAMETHasone SOD PHOS 10MG/1ML VIAL INJ IV SCH (09:57)
[2020-04-16] MEDS: FUROSEMIDE 40 MG/4 ML VIAL IV SCH (09:57)
[2020-04-16] MEDS: POTASSIUM CHL 20MEQ/100ML 100 ML IV SCH ×2 (12:25→14:55)
[2020-04-16 16:25] VITALS: BP 128/79
[2020-04-16] MEDS ORDERED: PPN PER PHARMACY IV NR ×9 (20:00)
[2020-04-16] MEDS: CARBIDOPA LEVODOPA PO SCH (20:50)
[2020-04-16] MEDS: LATANOPROST 0.005 % OPTH(EYE) SOL 2.5ML EACHEYE SCH (20:50)
[2020-04-16 23:46] VITALS: BP 119/97
[2020-04-17] VITALS (8 sets, daily range): BP systolic 91–129; BP diastolic 49–96
[2020-04-17] MEDS: HALOPERIDOL LACTATE 5 MG/ML INJ VIAL IM PRN (00:53)
[2020-04-17] MEDS: CARBIDOPA W LEVODOPA 25/100mg TABLET PO SCH ×3 (03:00→09:00)
[2020-04-17] MEDS: DOXYCYCLINE 100MG/250ML 250 ML IV SCH ×2 (03:07→15:32)
[2020-04-17] MEDS: LORazepam 2MG/ML-1ML VIAL IV PRN (05:09)
[2020-04-17] MEDS: ACCU-CHEK COMFORT CURVE STRIP VI SCH ×3 (05:19→17:42)
[2020-04-17] MEDS: InsuLIN REG 1unit/0.01ml Soln (100units/ml) SC SCH ×3 (05:31→17:44)
[2020-04-17] MEDS: BUDESONIDE (INHALATION) 180 MCG IH IN SCH ×2 (06:30→06:32)
[2020-04-17 07:29] LABS: Potassium 3.9 mmol/L (3.5-5.1)
[2020-04-17 08:03] LABS: Albumin 2.5 g/dL (3.4-5.0); BUN/Creatinine Ratio 81.7; Bilirubin, Total 0.9 mg/dL (0.2-1.0); Calcium 8.7 mg/dL (8.5-10.1); Magnesium 2.5 mg/dL (1.6-2.6); Phosphorus 2.4 mg/dL (2.5-4.90); Pre Albumin 37.2 mg/dL (20.0-40.0); Total Protein 6.6 g/dL (6.4-8.2)
[2020-04-17] MEDS: FUROSEMIDE 40 MG/4 ML VIAL IV SCH (10:00)
[2020-04-17] MEDS: DORZOLAMIDE HCL 2% OPTH(EYE) SOL 10ML EACHEYE SCH ×2 (10:12→23:00)
[2020-04-17] MEDS: DexAMETHasone SOD PHOS 10MG/1ML VIAL INJ IV SCH (10:12)
[2020-04-17] MEDS: FAMOTIDINE (10MG/ML) 2ML VL IV SCH ×2 (10:13→23:00)
[2020-04-17] MEDS: ENOXAPARIN SOD 60 MG/0.6 ML SYRINGE SC SCH ×2 (10:13→23:01)
[2020-04-17] MEDS ORDERED: HALOPERIDOL LACTATE 5 MG/ML INJ VIAL IM PRN (11:30)
[2020-04-17] MEDS: MORPHINE SULF INJ 2 MG/ML SYRINGE 1ML IV PRN ×2 (17:38→23:01)
[2020-04-17] MEDS ORDERED: TPN PER PHARMACY IV NR ×10 (20:00)
[2020-04-17] MEDS: LATANOPROST 0.005 % OPTH(EYE) SOL 2.5ML EACHEYE SCH (23:00)
[2020-04-18] VITALS: BP 112/55
[2020-04-18] MEDS: ACCU-CHEK COMFORT CURVE STRIP VI SCH ×4 (00:25→17:25)
[2020-04-18] MEDS: MORPHINE SULF INJ 2 MG/ML SYRINGE 1ML IV PRN ×6 (03:35→21:39)
[2020-04-18] MEDS: DOXYCYCLINE 100MG/250ML 250 ML IV SCH (03:43)
[2020-04-18] MEDS: InsuLIN REG 1unit/0.01ml Soln (100units/ml) SC SCH ×4 (06:00→17:25)
[2020-04-18 06:54] LABS: Albumin 2.3 g/dL (3.4-5.0); Calcium 8.3 mg/dL (8.5-10.1); Magnesium 2.3 mg/dL (1.6-2.6); Potassium 3.6 mmol/L (3.5-5.1)
[2020-04-18 07:00] LABS: BUN/Creatinine Ratio 105.6; Bilirubin, Total 0.7 mg/dL (0.2-1.0); Phosphorus 2.6 mg/dL (2.5-4.90); Total Protein 5.6 g/dL (6.4-8.2)
[2020-04-18 08:00] VITALS: BP 107/66
[2020-04-18] MEDS: DexAMETHasone SOD PHOS 10MG/1ML VIAL INJ IV SCH (08:22)
[2020-04-18] MEDS: DORZOLAMIDE HCL 2% OPTH(EYE) SOL 10ML EACHEYE SCH ×2 (08:22→21:38)
[2020-04-18] MEDS: FAMOTIDINE (10MG/ML) 2ML VL IV SCH ×2 (08:22→21:38)
[2020-04-18] MEDS: ENOXAPARIN SOD 60 MG/0.6 ML SYRINGE SC SCH (08:22)
[2020-04-18] MEDS: BUDESONIDE (INHALATION) 180 MCG IH IN SCH ×2 (10:00→22:00)
[2020-04-18 12:59] LABS: INR 1.05 (0.9-1.15); Partial Thromboplastin Time 27.8 sec (23.0-31.2)
[2020-04-18 16:30] VITALS: BP 138/67
[2020-04-18] MEDS ORDERED: TPN PER PHARMACY IV NR ×9 (20:00)
[2020-04-18] MEDS ORDERED: PPN PER PHARMACY IV NR ×9 (20:00)
[2020-04-18] MEDS: LATANOPROST 0.005 % OPTH(EYE) SOL 2.5ML EACHEYE SCH (21:38)
[2020-04-19] VITALS: BP 105/61
[2020-04-19] MEDS: ACCU-CHEK COMFORT CURVE STRIP VI SCH ×5 (00:04→23:51)
[2020-04-19] MEDS: MORPHINE SULF INJ 2 MG/ML SYRINGE 1ML IV PRN ×5 (01:26→21:52)
[2020-04-19] MEDS: InsuLIN REG 1unit/0.01ml Soln (100units/ml) SC SCH ×5 (05:33→23:52)
[2020-04-19 07:18] LABS: Potassium 4.1 mmol/L (3.5-5.1)
[2020-04-19 07:24] LABS: Albumin 2.6 g/dL (3.4-5.0); BUN/Creatinine Ratio 97.2; Bilirubin, Total 0.7 mg/dL (0.2-1.0); Calcium 8.6 mg/dL (8.5-10.1); Magnesium 2.4 mg/dL (1.6-2.6); Phosphorus 3.7 mg/dL (2.5-4.90); Total Protein 5.9 g/dL (6.4-8.2)
[2020-04-19 08:00] VITALS: BP 103/59
[2020-04-19] MEDS: DexAMETHasone SOD PHOS 10MG/1ML VIAL INJ IV SCH (10:34)
[2020-04-19] MEDS: DORZOLAMIDE HCL 2% OPTH(EYE) SOL 10ML EACHEYE SCH ×2 (10:34→21:51)
[2020-04-19] MEDS: BUDESONIDE (INHALATION) 180 MCG IH IN SCH ×2 (10:34→19:06)
[2020-04-19] MEDS: FAMOTIDINE (10MG/ML) 2ML VL IV SCH ×2 (10:35→21:51)
[2020-04-19 16:00] VITALS: BP 116/73
[2020-04-19] MEDS: ALBUTEROL SULF HFA 90MCG INH 200DOSE IN PRN (19:06)
[2020-04-19] MEDS ORDERED: SODIUM CHLORIDE IV NR ×13 (20:00)
[2020-04-19] MEDS ORDERED: SODIUM ACETATE IV NR ×13 (20:00)
[2020-04-19] MEDS ORDERED: FAT EMULSION IV NR ×13 (20:00)
[2020-04-19] MEDS ORDERED: [UNRECOGNIZED DRUG - OTHER] IV NR ×13 (20:00)
[2020-04-19] MEDS: LATANOPROST 0.005 % OPTH(EYE) SOL 2.5ML EACHEYE SCH (21:50)
[2020-04-19] MEDS: ATORVASTATIN 20 MG TAB PO SCH (21:51)
[2020-04-20] VITALS: BP 110/60
[2020-04-20] MEDS: ACCU-CHEK COMFORT CURVE STRIP VI SCH ×4 (05:52→23:36)
[2020-04-20] MEDS: InsuLIN REG 1unit/0.01ml Soln (100units/ml) SC SCH ×4 (05:52→23:40)
[2020-04-20] MEDS: BUDESONIDE (INHALATION) 180 MCG IH IN SCH ×2 (06:28→20:52)
[2020-04-20 08:00] VITALS: BP_SYST 108; BP_SYST 115; BP_DIAS 64; BP_DIAS 71
[2020-04-20] MEDS: MORPHINE SULF INJ 2 MG/ML SYRINGE 1ML IV PRN ×4 (08:39→19:24)
[2020-04-20 09:10] LABS: Potassium 3.8 mmol/L (3.5-5.1)
[2020-04-20 09:17] LABS: Albumin 2.5 g/dL (3.4-5.0); BUN/Creatinine Ratio 77.8; Bilirubin, Total 0.6 mg/dL (0.2-1.0); Calcium 8.3 mg/dL (8.5-10.1); Magnesium 2.4 mg/dL (1.6-2.6); Phosphorus 3.4 mg/dL (2.5-4.90); Total Protein 5.8 g/dL (6.4-8.2)
[2020-04-20] MEDS: DORZOLAMIDE HCL 2% OPTH(EYE) SOL 10ML EACHEYE SCH ×2 (09:52→22:00)
[2020-04-20] MEDS: FAMOTIDINE (10MG/ML) 2ML VL IV SCH ×2 (09:52→22:00)
[2020-04-20] MEDS: DexAMETHasone SOD PHOS 10MG/1ML VIAL INJ IV SCH (09:52)
[2020-04-20] MEDS ORDERED: ASPirin 300 MG RECTAL SUPP PR SCH (10:00)
[2020-04-20 16:00] VITALS: BP 134/80
[2020-04-20] MEDS ORDERED: PPN PER PHARMACY IV NR ×11 (20:00)
[2020-04-20] MEDS: ALBUTEROL SULF HFA 90MCG INH 200DOSE IN PRN (20:52)
[2020-04-20] MEDS: ATORVASTATIN 20 MG TAB PO SCH (22:00)
[2020-04-20] MEDS: LATANOPROST 0.005 % OPTH(EYE) SOL 2.5ML EACHEYE SCH (22:00)
[2020-04-21] VITALS (92 sets, daily range): BP systolic 73–175; BP diastolic 34–112
[2020-04-21] MEDS ORDERED: SUCCINYLCHOLINE CHLORIDE 20 MG/ML 10ML VIAL IV ONE ×2 (00:37→02:45)
[2020-04-21] MEDS ORDERED: ETOMIDATE (2MG/ML) 20ML VIAL IV ONE ×2 (00:37→02:45)
[2020-04-21] MEDS ORDERED: NOREPINEPHRINE 8 MG/250ML KIT 250 ML IV ONE (01:51)
[2020-04-21] MEDS: MIDAZOLAM DRIP 50 mg/50mL 50 ML IV SCH ×5 (02:30→22:00)
[2020-04-21] MEDS: NOREPINEPHRINE 8 MG/250ML KIT 250 ML IV SCH (02:30)
[2020-04-21] MEDS: PROPOFOL 100 ML IV SCH ×3 (02:58→17:00)
[2020-04-21] MEDS: InsuLIN REG 1unit/0.01ml Soln (100units/ml) SC SCH ×3 (06:20→18:11)
[2020-04-21] MEDS: ACCU-CHEK COMFORT CURVE STRIP VI SCH ×3 (06:20→18:10)
[2020-04-21] MEDS: DexAMETHasone SOD PHOS 10MG/1ML VIAL INJ IV SCH (10:00)
[2020-04-21] MEDS: DORZOLAMIDE HCL 2% OPTH(EYE) SOL 10ML EACHEYE SCH ×2 (10:00→21:48)
[2020-04-21] MEDS: FAMOTIDINE (10MG/ML) 2ML VL IV SCH ×2 (10:00→21:48)
[2020-04-21] MEDS: BUDESONIDE (INHALATION) 0.5 MG/2 ML NEB NEB SCH ×2 (10:56→19:17)
[2020-04-21 11:59] LABS: Basophils # (auto) 0 10 ^3/uL (0-0.2); Basophils % (auto) 0.1 % (0.0-2.0); Eosinophils # (auto) 0.5 10 ^3/uL (0-0.8); Eosinophils % (auto) 3.1 % (0.0-7.0); Hemoglobin 11.3 g/dL (12.2-16.2); Lymphocytes # (auto) 0.4 10 ^3/uL (0.4-5.4); Lymphocytes % (auto) 2.3 % (10.0-50.0); Mean Corpuscular Hemoglobin 32.8 pg (28.0-32.0); Mean Corpuscular Hgb Conc. 34.2 g/dL (32.0-36.0); Mean Corpuscular Volume 95.8 fL (80.0-100.0); Monocytes # (auto) 0.3 10 ^3/uL (0-1.3); Monocytes % (auto) 1.7 % (0.0-12.0); Neutrophils # (auto) 16.4 10 ^3/uL (1.6-8.6); Neutrophils % (auto) 92.8 % (37.0-80.0); Nucleated Red Blood Cells % 0.1 %; Platelet Count (auto) 159 10^3/uL (140-450); Red Blood Cells 3.44 10^6/uL (4.0-5.20); Red Cell Distribution Width 12.9 % (11.8-14.3); White Blood Cell 17.7 10^3/uL (4.4-10.8)
[2020-04-21] MEDS ORDERED: fentaNYL Drip 2500mCg/250mlNS 250 ML IV SCH (12:00)
[2020-04-21 12:17] LABS: Albumin 2.5 g/dL (3.4-5.0); Magnesium 2.5 mg/dL (1.6-2.6); Potassium 3.8 mmol/L (3.5-5.1)
[2020-04-21 12:23] LABS: Bilirubin, Total 0.7 mg/dL (0.2-1.0); CRP High Sensitivity 0.15 mg/dL (< 0.3); Phosphorus 3.4 mg/dL (2.5-4.90); Total Protein 5.6 g/dL (6.4-8.2)
[2020-04-21] MEDS: ASPirin 81 mg TAB GT SCH (13:16)
[2020-04-21] MEDS ORDERED: ENOXAPARIN SOD 40 MG/0.4 ML SYRINGE SC ONE (14:00)
[2020-04-21] MEDS: fentaNYL Drip 2500mCg/250mlNS 250 ML IV SCH (15:42)
[2020-04-21 17:55] LABS: Calcium 8.3 mg/dL (8.5-10.1)
[2020-04-21] MEDS ORDERED: PPN PER PHARMACY IV NR ×8 (20:00)
[2020-04-21] MEDS: SODIUM CHLOR 0.9% PF (SALINE LOCK) 10ML VIAL/SYR IV SCH (21:48)
[2020-04-21] MEDS: LATANOPROST 0.005 % OPTH(EYE) SOL 2.5ML EACHEYE SCH (21:48)
[2020-04-21] MEDS: ATORVASTATIN 20 MG TAB PO SCH (21:48)
[2020-04-22] VITALS (101 sets, daily range): BP systolic 90–135; BP diastolic 42–65
[2020-04-22] MEDS: InsuLIN REG 1unit/0.01ml Soln (100units/ml) SC SCH ×4 (00:11→17:45)
[2020-04-22] MEDS: ACCU-CHEK COMFORT CURVE STRIP VI SCH ×4 (00:18→17:44)
[2020-04-22] MEDS: MIDAZOLAM DRIP 50 mg/50mL 50 ML IV SCH ×6 (02:00→22:01)
[2020-04-22] MEDS: NOREPINEPHRINE 8 MG/250ML KIT 250 ML IV SCH (02:30)
[2020-04-22 04:08] LABS: Basophils # (auto) 0 10 ^3/uL (0-0.2); Basophils % (auto) 0.1 % (0.0-2.0); Eosinophils # (auto) 0 10 ^3/uL (0-0.8); Eosinophils % (auto) 0.2 % (0.0-7.0); Hematocrit 30.6 % (36.0-46.0); Hemoglobin 10.5 g/dL (12.2-16.2); Lymphocytes # (auto) 0.3 10 ^3/uL (0.4-5.4); Mean Corpuscular Hemoglobin 33.2 pg (28.0-32.0); Mean Corpuscular Hgb Conc. 34.2 g/dL (32.0-36.0); Mean Corpuscular Volume 97.1 fL (80.0-100.0); Monocytes # (auto) 0.4 10 ^3/uL (0-1.3); Monocytes % (auto) 2.8 % (0.0-12.0); Neutrophils % (auto) 94.9 % (37.0-80.0); Nucleated Red Blood Cells % 0.2 %; Platelet Count (auto) 141 10^3/uL (140-450); Red Blood Cells 3.15 10^6/uL (4.0-5.20); Red Cell Distribution Width 13.1 % (11.8-14.3); White Blood Cell 13.7 10^3/uL (4.4-10.8)
[2020-04-22] MEDS: fentaNYL Drip 2500mCg/250mlNS 250 ML IV SCH ×3 (04:21→17:52)
[2020-04-22 04:26] LABS: Albumin 2.4 g/dL (3.4-5.0); Magnesium 2.3 mg/dL (1.6-2.6); Potassium 4.5 mmol/L (3.5-5.1)
[2020-04-22 04:31] LABS: BUN/Creatinine Ratio 66.7; Bilirubin, Total 0.4 mg/dL (0.2-1.0); Phosphorus 4.2 mg/dL (2.5-4.90); Total Protein 5.5 g/dL (6.4-8.2)
[2020-04-22] MEDS: BUDESONIDE (INHALATION) 0.5 MG/2 ML NEB NEB SCH ×2 (06:50→20:49)
[2020-04-22] MEDS: ASPirin 81 mg TAB GT SCH (09:45)
[2020-04-22] MEDS: FAMOTIDINE (10MG/ML) 2ML VL IV SCH ×2 (09:45→22:00)
[2020-04-22] MEDS: DORZOLAMIDE HCL 2% OPTH(EYE) SOL 10ML EACHEYE SCH ×2 (09:45→21:59)
[2020-04-22] MEDS: ENOXAPARIN SOD 40 MG/0.4 ML SYRINGE SC SCH (09:45)
[2020-04-22] MEDS: SODIUM CHLOR 0.9% PF (SALINE LOCK) 10ML VIAL/SYR IV SCH ×2 (09:45→22:00)
[2020-04-22] MEDS: DexAMETHasone SOD PHOS 10MG/1ML VIAL INJ IV SCH (09:45)
[2020-04-22] MEDS: CEFEPIME 1 GM in SODIUM CHL 0.9% 50 ML IV SCH ×2 (16:11→22:00)
[2020-04-22] MEDS: PROPOFOL 100 ML IV SCH (17:54)
[2020-04-22] MEDS ORDERED: PPN PER PHARMACY IV NR ×10 (20:00)
[2020-04-22] MEDS: LATANOPROST 0.005 % OPTH(EYE) SOL 2.5ML EACHEYE SCH (22:00)
[2020-04-22] MEDS: ATORVASTATIN 20 MG TAB PO SCH (22:01)
[2020-04-23] VITALS (99 sets, daily range): BP systolic 81–128; BP diastolic 28–67
[2020-04-23] MEDS: InsuLIN REG 1unit/0.01ml Soln (100units/ml) SC SCH ×4 (00:48→18:00)
[2020-04-23] MEDS: ACCU-CHEK COMFORT CURVE STRIP VI SCH ×4 (00:49→18:00)
[2020-04-23] MEDS: NOREPINEPHRINE 8 MG/250ML KIT 250 ML IV SCH (02:30)
[2020-04-23] MEDS: MIDAZOLAM DRIP 50 mg/50mL 50 ML IV SCH (03:00)
[2020-04-23] MEDS: PROPOFOL 100 ML IV SCH (03:00)
[2020-04-23] MEDS: fentaNYL Drip 2500mCg/250mlNS 250 ML IV SCH ×2 (04:00→22:01)
[2020-04-23 05:40] LABS: INR 0.98 (0.9-1.15); Partial Thromboplastin Time 21.2 sec (23.0-31.2)
[2020-04-23 05:44] LABS: Albumin 2.2 g/dL (3.4-5.0); Calcium 7.9 mg/dL (8.5-10.1); Magnesium 2.6 mg/dL (1.6-2.6); Potassium 4.1 mmol/L (3.5-5.1)
[2020-04-23 05:47] LABS: BUN/Creatinine Ratio 95.2; Bilirubin, Total 0.4 mg/dL (0.2-1.0); Phosphorus 2.8 mg/dL (2.5-4.90); Total Protein 5.2 g/dL (6.4-8.2)
[2020-04-23] MEDS: CEFEPIME 1 GM in SODIUM CHL 0.9% 50 ML IV SCH ×3 (06:11→21:56)
[2020-04-23] MEDS: BUDESONIDE (INHALATION) 0.5 MG/2 ML NEB NEB SCH ×2 (06:40→18:35)
[2020-04-23] MEDS: ASPirin 81 mg TAB GT SCH (08:30)
[2020-04-23] MEDS: DexAMETHasone SOD PHOS 10MG/1ML VIAL INJ IV SCH (09:30)
[2020-04-23] MEDS: FAMOTIDINE (10MG/ML) 2ML VL IV SCH ×2 (09:30→21:56)
[2020-04-23] MEDS: ENOXAPARIN SOD 40 MG/0.4 ML SYRINGE SC SCH (09:30)
[2020-04-23] MEDS: SODIUM CHLOR 0.9% PF (SALINE LOCK) 10ML VIAL/SYR IV SCH ×2 (09:30→21:56)
[2020-04-23] MEDS: DORZOLAMIDE HCL 2% OPTH(EYE) SOL 10ML EACHEYE SCH ×2 (09:30→21:55)
[2020-04-23] MEDS ORDERED: TPN PER PHARMACY IV NR ×8 (20:00)
[2020-04-23] MEDS: LATANOPROST 0.005 % OPTH(EYE) SOL 2.5ML EACHEYE SCH (21:55)
[2020-04-23] MEDS: ATORVASTATIN 20 MG TAB PO SCH (21:56)
[2020-04-24] VITALS (97 sets, daily range): BP systolic 86–140; BP diastolic 32–71
[2020-04-24] MEDS: NOREPINEPHRINE 8 MG/250ML KIT 250 ML IV SCH (02:30)
[2020-04-24 05:20] LABS: Albumin 2.2 g/dL (3.4-5.0); Calcium 7.9 mg/dL (8.5-10.1); Magnesium 2.2 mg/dL (1.6-2.6); Potassium 3.9 mmol/L (3.5-5.1)
[2020-04-24 05:26] LABS: BUN/Creatinine Ratio 95.5; Bilirubin, Total 0.4 mg/dL (0.2-1.0); Phosphorus 3.1 mg/dL (2.5-4.90); Pre Albumin 34.1 mg/dL (20.0-40.0); Total Protein 5.2 g/dL (6.4-8.2)
[2020-04-24] MEDS: ACCU-CHEK COMFORT CURVE STRIP VI SCH ×4 (05:38→18:00)
[2020-04-24] MEDS: CEFEPIME 1 GM in SODIUM CHL 0.9% 50 ML IV SCH ×3 (05:38→22:00)
[2020-04-24] MEDS: InsuLIN REG 1unit/0.01ml Soln (100units/ml) SC SCH ×4 (05:38→18:00)
[2020-04-24] MEDS: BUDESONIDE (INHALATION) 0.5 MG/2 ML NEB NEB SCH ×2 (06:30→22:11)
[2020-04-24] MEDS: MIDAZOLAM DRIP 50 mg/50mL 50 ML IV SCH ×4 (06:50→23:00)
[2020-04-24] MEDS: ENOXAPARIN SOD 40 MG/0.4 ML SYRINGE SC SCH (10:00)
[2020-04-24] MEDS: DexAMETHasone SOD PHOS 10MG/1ML VIAL INJ IV SCH (10:00)
[2020-04-24] MEDS: SODIUM CHLOR 0.9% PF (SALINE LOCK) 10ML VIAL/SYR IV SCH ×2 (10:00→22:00)
[2020-04-24] MEDS: DORZOLAMIDE HCL 2% OPTH(EYE) SOL 10ML EACHEYE SCH ×2 (10:00→22:00)
[2020-04-24] MEDS: FAMOTIDINE (10MG/ML) 2ML VL IV SCH ×2 (10:00→22:00)
[2020-04-24] MEDS: ASPirin 81 mg TAB GT SCH (10:00)
[2020-04-24 10:33] LABS: Hematocrit 27.7 % (36.0-46.0); Hemoglobin 9.5 g/dL (12.2-16.2); Mean Corpuscular Hemoglobin 33.2 pg (28.0-32.0); Mean Corpuscular Hgb Conc. 34.3 g/dL (32.0-36.0); Mean Corpuscular Volume 96.6 fL (80.0-100.0); Platelet Count (auto) 136 10^3/uL (140-450); Red Blood Cells 2.87 10^6/uL (4.0-5.20); White Blood Cell 8.2 10^3/uL (4.4-10.8)
[2020-04-24 10:39] LABS: Basophils % (manual) 0 (0.0-2.0); Blast Cells 0; Eosinophils % (manual) 0 (0-7); Metamyelocytes % 0; Monocytes % (manual) 0 (0-12); Promyelocytes % 0; Reactive Lymphocytes 0
[2020-04-24 12:56] LABS: Band Neutrophils % (manual) 24; Lymphocytes % (manual) 3 (10.0-50.0); Myelocytes % 10
[2020-04-24] MEDS: fentaNYL Drip 2500mCg/250mlNS 250 ML IV SCH (16:00)
[2020-04-24] MEDS ORDERED: TPN PER PHARMACY IV NR ×9 (20:00)
[2020-04-24] MEDS: ATORVASTATIN 20 MG TAB PO SCH (22:00)
[2020-04-24] MEDS: LATANOPROST 0.005 % OPTH(EYE) SOL 2.5ML EACHEYE SCH (22:00)
[2020-04-25] VITALS (79 sets, daily range): BP systolic 80–169; BP diastolic 40–71
[2020-04-25 05:21] LABS: Chloride 106 mmol/L (98-107); Potassium 3.6 mmol/L (3.5-5.1); Sodium 139 mmol/L (136-145)
[2020-04-25 05:26] LABS: Alanine Aminotransferase 136 U/L (13-56); Albumin 2.1 g/dL (3.4-5.0); Alkaline Phosphatase 104 U/L (45-117); Anion Gap 4 (5-15); Aspartate Aminotransferase 66 U/L (15-37); BUN/Creatinine Ratio 133.3; Bilirubin, Total 0.3 mg/dL (0.2-1.0); Blood Urea Nitrogen 20 mg/dL (7-18); Calcium 7.4 mg/dL (8.5-10.1); Carbon Dioxide 29 mmol/L (21-32); GFR African American 656 mL/min; GFR Non-African American 542 mL/min; Glucose 128 mg/dL (74-106); Magnesium 1.9 mg/dL (1.6-2.6); Phosphorus 3.3 mg/dL (2.5-4.90); Total Protein 4.8 g/dL (6.4-8.2)
[2020-04-25] MEDS: InsuLIN REG 1unit/0.01ml Soln (100units/ml) SC SCH ×4 (06:00→18:50)
[2020-04-25] MEDS: CEFEPIME 1 GM in SODIUM CHL 0.9% 50 ML IV SCH ×3 (06:20→22:00)
[2020-04-25] MEDS: ACCU-CHEK COMFORT CURVE STRIP VI SCH ×4 (06:21→18:50)
[2020-04-25] MEDS: BUDESONIDE (INHALATION) 0.5 MG/2 ML NEB NEB SCH ×2 (06:30→18:40)
[2020-04-25] MEDS: NOREPINEPHRINE 8 MG/250ML KIT 250 ML IV SCH ×2 (08:00→15:20)
[2020-04-25] MEDS: PROPOFOL 100 ML IV SCH (10:59)
[2020-04-25] MEDS: FAMOTIDINE (10MG/ML) 2ML VL IV SCH ×2 (11:00→22:00)
[2020-04-25] MEDS: DORZOLAMIDE HCL 2% OPTH(EYE) SOL 10ML EACHEYE SCH ×2 (11:00→22:00)
[2020-04-25] MEDS: DexAMETHasone SOD PHOS 10MG/1ML VIAL INJ IV SCH (11:00)
[2020-04-25] MEDS: SODIUM CHLOR 0.9% PF (SALINE LOCK) 10ML VIAL/SYR IV SCH ×2 (11:00→22:00)
[2020-04-25] MEDS: ASPirin 81 mg TAB GT SCH (11:00)
[2020-04-25] MEDS: ENOXAPARIN SOD 40 MG/0.4 ML SYRINGE SC SCH (11:00)
[2020-04-25] MEDS: SODIUM CHLORIDE IV NR ×10 (20:00)
[2020-04-25] MEDS: SODIUM PHOSPHATES IV NR ×10 (20:00)
[2020-04-25] MEDS: [UNRECOGNIZED DRUG - OTHER] IV NR ×10 (20:00)
[2020-04-25] MEDS: FAT EMULSION IV NR ×10 (20:00)
[2020-04-25] MEDS: LATANOPROST 0.005 % OPTH(EYE) SOL 2.5ML EACHEYE SCH (22:00)
[2020-04-25] MEDS: ATORVASTATIN 20 MG TAB PO SCH (22:00)
[2020-04-26] VITALS (72 sets, daily range): BP systolic 83–164; BP diastolic 41–79
[2020-04-26] MEDS: ACCU-CHEK COMFORT CURVE STRIP VI SCH ×4 (00:10→18:00)
[2020-04-26] MEDS: InsuLIN REG 1unit/0.01ml Soln (100units/ml) SC SCH ×4 (00:11→18:00)
[2020-04-26] MEDS: MIDAZOLAM DRIP 50 mg/50mL 50 ML IV SCH (02:30)
[2020-04-26] MEDS: CEFEPIME 1 GM in SODIUM CHL 0.9% 50 ML IV SCH ×3 (05:38→22:00)
[2020-04-26 06:03] LABS: Albumin 1.9 g/dL (3.4-5.0); Calcium 7.2 mg/dL (8.5-10.1); Magnesium 2.3 mg/dL (1.6-2.6); Potassium 3.7 mmol/L (3.5-5.1)
[2020-04-26 06:07] LABS: BUN/Creatinine Ratio 111.1; Bilirubin, Total 0.3 mg/dL (0.2-1.0); Phosphorus 3.1 mg/dL (2.5-4.90); Total Protein 4.9 g/dL (6.4-8.2)
[2020-04-26] MEDS: BUDESONIDE (INHALATION) 0.5 MG/2 ML NEB NEB SCH ×2 (06:10→18:50)
[2020-04-26] MEDS: ENOXAPARIN SOD 40 MG/0.4 ML SYRINGE SC SCH (10:00)
[2020-04-26] MEDS: SODIUM CHLOR 0.9% PF (SALINE LOCK) 10ML VIAL/SYR IV SCH ×2 (10:00→22:00)
[2020-04-26] MEDS: PROPOFOL 100 ML IV SCH ×2 (10:00→20:00)
[2020-04-26] MEDS: FAMOTIDINE (10MG/ML) 2ML VL IV SCH ×2 (10:00→22:00)
[2020-04-26] MEDS: DORZOLAMIDE HCL 2% OPTH(EYE) SOL 10ML EACHEYE SCH ×2 (10:00→22:00)
[2020-04-26] MEDS: ASPirin 81 mg TAB GT SCH (10:00)
[2020-04-26] MEDS: DexAMETHasone SOD PHOS 10MG/1ML VIAL INJ IV SCH (10:00)
[2020-04-26] MEDS: fentaNYL Drip 2500mCg/250mlNS 250 ML IV SCH (16:00)
[2020-04-26] MEDS: SODIUM CHLORIDE IV NR ×10 (19:49)
[2020-04-26] MEDS: [UNRECOGNIZED DRUG - OTHER] IV NR ×10 (19:49)
[2020-04-26] MEDS: SODIUM PHOSPHATES IV NR ×10 (19:49)
[2020-04-26] MEDS: FAT EMULSION IV NR ×10 (19:49)
[2020-04-26] MEDS ORDERED: TPN PER PHARMACY IV NR ×22 (20:00)
[2020-04-26] MEDS: LATANOPROST 0.005 % OPTH(EYE) SOL 2.5ML EACHEYE SCH (22:00)
[2020-04-26] MEDS: ATORVASTATIN 20 MG TAB PO SCH (22:00)
[2020-04-27] VITALS (98 sets, daily range): BP systolic 52–126; BP diastolic 40–90
[2020-04-27] MEDS: MIDAZOLAM DRIP 50 mg/50mL 50 ML IV SCH ×2 (02:30→11:00)
[2020-04-27] MEDS: NOREPINEPHRINE 8 MG/250ML KIT 250 ML IV SCH (02:30)
[2020-04-27] MEDS: ACETAMINOPHEN 325 MG TAB PO PRN (04:00)
[2020-04-27 05:43] LABS: Albumin 2.1 g/dL (3.4-5.0); Calcium 7.8 mg/dL (8.5-10.1); Magnesium 2.5 mg/dL (1.6-2.6); Potassium 3.7 mmol/L (3.5-5.1)
[2020-04-27 05:48] LABS: Bilirubin, Total 0.3 mg/dL (0.2-1.0); Phosphorus 3.5 mg/dL (2.5-4.90); Total Protein 5.4 g/dL (6.4-8.2)
[2020-04-27] MEDS: CEFEPIME 1 GM in SODIUM CHL 0.9% 50 ML IV SCH ×3 (06:00→22:00)
[2020-04-27] MEDS: InsuLIN REG 1unit/0.01ml Soln (100units/ml) SC SCH ×4 (06:00→17:48)
[2020-04-27] MEDS: ACCU-CHEK COMFORT CURVE STRIP VI SCH ×4 (06:00→17:47)
[2020-04-27 09:48] LABS: Hematocrit 28.6 % (36.0-46.0); Hemoglobin 9.7 g/dL (12.2-16.2); Mean Corpuscular Hemoglobin 33.4 pg (28.0-32.0); Platelet Count (auto) 138 10^3/uL (140-450); Red Blood Cells 2.92 10^6/uL (4.0-5.20); Red Cell Distribution Width 13.9 % (11.8-14.3); White Blood Cell 5.4 10^3/uL (4.4-10.8)
[2020-04-27 09:49] LABS: Basophils % (manual) 0 (0.0-2.0); Blast Cells 0; Promyelocytes % 0; Reactive Lymphocytes 0
[2020-04-27] MEDS: SODIUM CHLOR 0.9% PF (SALINE LOCK) 10ML VIAL/SYR IV SCH ×2 (10:00→22:00)
[2020-04-27] MEDS: BUDESONIDE (INHALATION) 0.5 MG/2 ML NEB NEB SCH ×2 (10:09→21:52)
[2020-04-27] MEDS: DexAMETHasone SOD PHOS 10MG/1ML VIAL INJ IV SCH (10:29)
[2020-04-27] MEDS: FAMOTIDINE (10MG/ML) 2ML VL IV SCH ×2 (10:29→22:00)
[2020-04-27] MEDS: ENOXAPARIN SOD 40 MG/0.4 ML SYRINGE SC SCH (10:29)
[2020-04-27] MEDS: DORZOLAMIDE HCL 2% OPTH(EYE) SOL 10ML EACHEYE SCH ×2 (10:29→22:00)
[2020-04-27] MEDS: ASPirin 81 mg TAB GT SCH (10:29)
[2020-04-27] MEDS ORDERED: ROCURONIUM 10MG/ML 10ML VIAL IV ONE ×2 (10:55→11:00)
[2020-04-27 13:44] LABS: Band Neutrophils % (manual) 9; Eosinophils % (manual) 8 (0-7); Lymphocytes % (manual) 13 (10.0-50.0); Metamyelocytes % 1; Monocytes % (manual) 2 (0-12); Myelocytes % 1
[2020-04-27] MEDS: fentaNYL Drip 2500mCg/250mlNS 250 ML IV SCH ×2 (14:00→23:00)
[2020-04-27] MEDS: PROPOFOL 100 ML IV SCH (19:30)
[2020-04-27] MEDS ORDERED: TPN PER PHARMACY IV NR ×10 (20:00)
[2020-04-27] MEDS: LATANOPROST 0.005 % OPTH(EYE) SOL 2.5ML EACHEYE SCH (22:00)
[2020-04-27] MEDS: ATORVASTATIN 20 MG TAB PO SCH (22:00)
[2020-04-28] VITALS (98 sets, daily range): BP systolic 81–155; BP diastolic 29–81
[2020-04-28] MEDS: MIDAZOLAM DRIP 50 mg/50mL 50 ML IV SCH ×6 (01:39→22:30)
[2020-04-28] MEDS: CEFEPIME 1 GM in SODIUM CHL 0.9% 50 ML IV SCH ×3 (05:28→22:00)
[2020-04-28] MEDS: InsuLIN REG 1unit/0.01ml Soln (100units/ml) SC SCH ×4 (06:00→18:09)
[2020-04-28] MEDS: ACCU-CHEK COMFORT CURVE STRIP VI SCH ×4 (06:00→18:00)
[2020-04-28] MEDS: ACETAMINOPHEN 325 MG TAB PO PRN ×2 (07:58→16:53)
[2020-04-28] MEDS: NOREPINEPHRINE 8 MG/250ML KIT 250 ML IV SCH (09:00)
[2020-04-28] MEDS: DORZOLAMIDE HCL 2% OPTH(EYE) SOL 10ML EACHEYE SCH ×2 (10:00→22:00)
[2020-04-28] MEDS: fentaNYL Drip 2500mCg/250mlNS 250 ML IV SCH (10:32)
[2020-04-28] MEDS: PROPOFOL 100 ML IV SCH ×4 (10:33→20:40)
[2020-04-28] MEDS: FAMOTIDINE (10MG/ML) 2ML VL IV SCH ×2 (10:34→22:00)
[2020-04-28] MEDS: ASPirin 81 mg TAB GT SCH (10:34)
[2020-04-28] MEDS: DexAMETHasone SOD PHOS 10MG/1ML VIAL INJ IV SCH (10:34)
[2020-04-28] MEDS: ENOXAPARIN SOD 40 MG/0.4 ML SYRINGE SC SCH (10:35)
[2020-04-28] MEDS: SODIUM CHLOR 0.9% PF (SALINE LOCK) 10ML VIAL/SYR IV SCH ×2 (10:35→22:00)
[2020-04-28] MEDS: BUDESONIDE (INHALATION) 0.5 MG/2 ML NEB NEB SCH ×2 (10:37→18:56)
[2020-04-28 10:45] LABS: Albumin 2.1 g/dL (3.4-5.0); Calcium 7.9 mg/dL (8.5-10.1); Magnesium 2.3 mg/dL (1.6-2.6); Potassium 3.6 mmol/L (3.5-5.1)
[2020-04-28 10:49] LABS: Bilirubin, Total 0.2 mg/dL (0.2-1.0); Phosphorus 2.8 mg/dL (2.5-4.90); Total Protein 5.5 g/dL (6.4-8.2)
[2020-04-28] MEDS ORDERED: TPN PER PHARMACY IV NR ×7 (20:00)
[2020-04-28] MEDS: ATORVASTATIN 20 MG TAB PO SCH (22:00)
[2020-04-28] MEDS: LATANOPROST 0.005 % OPTH(EYE) SOL 2.5ML EACHEYE SCH (22:00)
[2020-04-29] VITALS (95 sets, daily range): BP systolic 85–156; BP diastolic 39–80
[2020-04-29] MEDS: fentaNYL Drip 2500mCg/250mlNS 250 ML IV SCH ×2 (00:30→12:08)
[2020-04-29] MEDS: MIDAZOLAM DRIP 50 mg/50mL 50 ML IV SCH ×4 (01:40→13:51)
[2020-04-29] MEDS: PROPOFOL 100 ML IV SCH ×4 (02:10→21:10)
[2020-04-29] MEDS: NOREPINEPHRINE 8 MG/250ML KIT 250 ML IV SCH ×2 (02:30→13:50)
[2020-04-29] MEDS: ACCU-CHEK COMFORT CURVE STRIP VI SCH ×4 (06:00→18:00)
[2020-04-29] MEDS: InsuLIN REG 1unit/0.01ml Soln (100units/ml) SC SCH ×4 (06:00→18:00)
[2020-04-29] MEDS: CEFEPIME 1 GM in SODIUM CHL 0.9% 50 ML IV SCH ×3 (06:00→22:12)
[2020-04-29 06:05] LABS: Hematocrit 25.8 % (36.0-46.0); Hemoglobin 8.9 g/dL (12.2-16.2); Mean Corpuscular Hemoglobin 33.9 pg (28.0-32.0); Mean Corpuscular Hgb Conc. 34.7 g/dL (32.0-36.0); Mean Corpuscular Volume 97.8 fL (80.0-100.0); Platelet Count (auto) 94 10^3/uL (140-450); Red Blood Cells 2.64 10^6/uL (4.0-5.20); Red Cell Distribution Width 13.8 % (11.8-14.3); White Blood Cell 11.6 10^3/uL (4.4-10.8)
[2020-04-29 06:25] LABS: Potassium 3.7 mmol/L (3.5-5.1)
[2020-04-29 06:26] LABS: Basophils % (manual) 0 (0.0-2.0); Blast Cells 0; Eosinophils % (manual) 0 (0-7); Reactive Lymphocytes 0
[2020-04-29 06:36] LABS: Albumin 1.8 g/dL (3.4-5.0); BUN/Creatinine Ratio 78.1; Bilirubin, Total 0.3 mg/dL (0.2-1.0); Calcium 6.9 mg/dL (8.5-10.1); Magnesium 2.1 mg/dL (1.6-2.6); Phosphorus 3.8 mg/dL (2.5-4.90)
[2020-04-29 07:40] LABS: Band Neutrophils % (manual) 26; Lymphocytes % (manual) 2 (10.0-50.0); Metamyelocytes % 15; Monocytes % (manual) 3 (0-12); Myelocytes % 25; Promyelocytes % 3
[2020-04-29] MEDS: DexAMETHasone SOD PHOS 10MG/1ML VIAL INJ IV SCH (08:02)
[2020-04-29] MEDS: DORZOLAMIDE HCL 2% OPTH(EYE) SOL 10ML EACHEYE SCH ×2 (08:03→22:12)
[2020-04-29] MEDS: FAMOTIDINE (10MG/ML) 2ML VL IV SCH ×2 (08:03→22:12)
[2020-04-29] MEDS: SODIUM CHLOR 0.9% PF (SALINE LOCK) 10ML VIAL/SYR IV SCH ×2 (08:03→22:12)
[2020-04-29] MEDS: ASPirin 81 mg TAB GT SCH (08:03)
[2020-04-29] MEDS: ENOXAPARIN SOD 40 MG/0.4 ML SYRINGE SC SCH (08:03)
[2020-04-29] MEDS: ACETAMINOPHEN 325 MG TAB PO PRN (08:30)
[2020-04-29] MEDS: BUDESONIDE (INHALATION) 0.5 MG/2 ML NEB NEB SCH ×2 (10:00→22:05)
[2020-04-29] MEDS ORDERED: [UNRECOGNIZED DRUG - OTHER] IV NR ×9 (20:00)
[2020-04-29] MEDS ORDERED: SODIUM PHOSPHATES IV NR ×9 (20:00)
[2020-04-29] MEDS ORDERED: POTASSIUM ACETATE IV NR ×9 (20:00)
[2020-04-29] MEDS ORDERED: POTASSIUM PHOSPHATE IV NR ×9 (20:00)
[2020-04-29] MEDS: ATORVASTATIN 20 MG TAB PO SCH (22:12)
[2020-04-29] MEDS: LATANOPROST 0.005 % OPTH(EYE) SOL 2.5ML EACHEYE SCH (22:12)
[2020-04-30] VITALS (95 sets, daily range): BP systolic 91–146; BP diastolic 42–80
[2020-04-30] MEDS: fentaNYL Drip 2500mCg/250mlNS 250 ML IV SCH (00:24)
[2020-04-30] MEDS: MIDAZOLAM DRIP 50 mg/50mL 50 ML IV SCH ×4 (00:25→23:07)
[2020-04-30] MEDS: NOREPINEPHRINE 8 MG/250ML KIT 250 ML IV SCH (00:53)
[2020-04-30] MEDS: PROPOFOL 100 ML IV SCH ×3 (01:56→23:06)
[2020-04-30] MEDS: CEFEPIME 1 GM in SODIUM CHL 0.9% 50 ML IV SCH ×3 (05:27→21:15)
[2020-04-30 05:55] LABS: Hematocrit 25.3 % (36.0-46.0); Hemoglobin 9.1 g/dL (12.2-16.2); Mean Corpuscular Hemoglobin 35.1 pg (28.0-32.0); Mean Corpuscular Hgb Conc. 35.9 g/dL (32.0-36.0); Mean Corpuscular Volume 97.8 fL (80.0-100.0); Platelet Count (auto) 83 10^3/uL (140-450); Red Blood Cells 2.59 10^6/uL (4.0-5.20)
[2020-04-30 05:58] LABS: Basophils % (manual) 0 (0.0-2.0); Blast Cells 0; Eosinophils % (manual) 0 (0-7); Promyelocytes % 0; Reactive Lymphocytes 0
[2020-04-30] MEDS: InsuLIN REG 1unit/0.01ml Soln (100units/ml) SC SCH ×4 (06:00→17:52)
[2020-04-30] MEDS: ACCU-CHEK COMFORT CURVE STRIP VI SCH ×4 (06:02→17:48)
[2020-04-30 06:06] LABS: Potassium 4.5 mmol/L (3.5-5.1)
[2020-04-30 06:25] LABS: Albumin 1.7 g/dL (3.4-5.0); BUN/Creatinine Ratio 69.2; Bilirubin, Total 0.4 mg/dL (0.2-1.0); Magnesium 2.3 mg/dL (1.6-2.6); Phosphorus 5.6 mg/dL (2.5-4.90); Total Protein 5.3 g/dL (6.4-8.2)
[2020-04-30 07:03] LABS: Band Neutrophils % (manual) 22; Lymphocytes % (manual) 3 (10.0-50.0); Metamyelocytes % 13; Monocytes % (manual) 10 (0-12); Myelocytes % 2
[2020-04-30] MEDS: ASPirin 81 mg TAB GT SCH (10:24)
[2020-04-30] MEDS: ENOXAPARIN SOD 40 MG/0.4 ML SYRINGE SC SCH (10:24)
[2020-04-30] MEDS: FAMOTIDINE (10MG/ML) 2ML VL IV SCH ×2 (10:24→21:15)
[2020-04-30] MEDS: SODIUM CHLOR 0.9% PF (SALINE LOCK) 10ML VIAL/SYR IV SCH ×2 (10:24→21:15)
[2020-04-30] MEDS: DexAMETHasone SOD PHOS 10MG/1ML VIAL INJ IV SCH (10:24)
[2020-04-30] MEDS: DORZOLAMIDE HCL 2% OPTH(EYE) SOL 10ML EACHEYE SCH ×2 (10:25→21:14)
[2020-04-30] MEDS: BUDESONIDE (INHALATION) 0.5 MG/2 ML NEB NEB SCH ×2 (13:55→18:50)
[2020-04-30] MEDS ORDERED: [UNRECOGNIZED DRUG - OTHER] IV NR ×7 (20:00)
[2020-04-30] MEDS ORDERED: SODIUM ACETATE IV NR ×7 (20:00)
[2020-04-30] MEDS ORDERED: POTASSIUM ACETATE IV NR ×7 (20:00)
[2020-04-30] MEDS ORDERED: CALCIUM GLUC IV NR ×7 (20:00)
[2020-04-30] MEDS: LATANOPROST 0.005 % OPTH(EYE) SOL 2.5ML EACHEYE SCH (21:14)
[2020-04-30] MEDS: ATORVASTATIN 20 MG TAB PO SCH (21:16)
[2020-05-01] VITALS (94 sets, daily range): BP systolic 87–126; BP diastolic 41–68
[2020-05-01] MEDS: InsuLIN REG 1unit/0.01ml Soln (100units/ml) SC SCH ×5 (00:22→23:51)
[2020-05-01] MEDS: ACCU-CHEK COMFORT CURVE STRIP VI SCH ×5 (00:22→23:52)
[2020-05-01] MEDS: fentaNYL Drip 2500mCg/250mlNS 250 ML IV SCH ×2 (00:46→23:28)
[2020-05-01] MEDS: PROPOFOL 100 ML IV SCH ×4 (02:00→23:27)
[2020-05-01] MEDS: MIDAZOLAM DRIP 50 mg/50mL 50 ML IV SCH ×5 (02:13→17:54)
[2020-05-01 06:02] LABS: Albumin 1.5 g/dL (3.4-5.0); Calcium 7.1 mg/dL (8.5-10.1); Magnesium 2.6 mg/dL (1.6-2.6); Potassium 4.4 mmol/L (3.5-5.1)
[2020-05-01 06:07] LABS: BUN/Creatinine Ratio 60.3; Bilirubin, Total 0.3 mg/dL (0.2-1.0); Phosphorus 6.2 mg/dL (2.5-4.90); Total Protein 5.2 g/dL (6.4-8.2)
[2020-05-01] MEDS: CEFEPIME 1 GM in SODIUM CHL 0.9% 50 ML IV SCH ×3 (06:28→22:01)
[2020-05-01] MEDS: BUDESONIDE (INHALATION) 0.5 MG/2 ML NEB NEB SCH ×2 (07:50→19:33)
[2020-05-01] MEDS: NOREPINEPHRINE 8 MG/250ML KIT 250 ML IV SCH ×2 (07:58→21:00)
[2020-05-01] MEDS: FAMOTIDINE (10MG/ML) 2ML VL IV SCH ×2 (09:56→22:01)
[2020-05-01] MEDS: SODIUM CHLOR 0.9% PF (SALINE LOCK) 10ML VIAL/SYR IV SCH ×2 (09:56→22:01)
[2020-05-01] MEDS: ENOXAPARIN SOD 40 MG/0.4 ML SYRINGE SC SCH (09:56)
[2020-05-01] MEDS: DORZOLAMIDE HCL 2% OPTH(EYE) SOL 10ML EACHEYE SCH ×2 (09:57→21:07)
[2020-05-01] MEDS: ASPirin 81 mg TAB GT SCH (09:57)
[2020-05-01] MEDS: SODIUM CHLORIDE 0.9% 1,000 ML IV SCH (10:00)
[2020-05-01] MEDS ORDERED: [UNRECOGNIZED DRUG - OTHER] IV NR ×9 (20:00)
[2020-05-01] MEDS ORDERED: SODIUM CHLORIDE IV NR ×9 (20:00)
[2020-05-01] MEDS ORDERED: SODIUM ACETATE IV NR ×9 (20:00)
[2020-05-01] MEDS ORDERED: POTASSIUM ACETATE IV NR ×9 (20:00)
[2020-05-01] MEDS: ATORVASTATIN 20 MG TAB PO SCH (22:01)
[2020-05-01] MEDS: LATANOPROST 0.005 % OPTH(EYE) SOL 2.5ML EACHEYE SCH (22:01)
[2020-05-02] VITALS (97 sets, daily range): BP systolic 74–122; BP diastolic 39–60
[2020-05-02] MEDS: MIDAZOLAM DRIP 50 mg/50mL 50 ML IV SCH ×6 (01:14→22:10)
[2020-05-02] MEDS: SODIUM CHLORIDE 0.9% 1,000 ML IV SCH (02:10)
[2020-05-02 05:43] LABS: Potassium 4.6 mmol/L (3.5-5.1)
[2020-05-02 05:50] LABS: Albumin 1.3 g/dL (3.4-5.0); Bilirubin, Total 0.5 mg/dL (0.2-1.0); Calcium 6.7 mg/dL (8.5-10.1); Magnesium 2.3 mg/dL (1.6-2.6); Phosphorus 5.8 mg/dL (2.5-4.90); Total Protein 4.9 g/dL (6.4-8.2)
[2020-05-02] MEDS: InsuLIN REG 1unit/0.01ml Soln (100units/ml) SC SCH ×4 (06:00→23:39)
[2020-05-02] MEDS: ACCU-CHEK COMFORT CURVE STRIP VI SCH ×4 (06:05→23:39)
[2020-05-02] MEDS: CEFEPIME 1 GM in SODIUM CHL 0.9% 50 ML IV SCH ×3 (06:05→22:11)
[2020-05-02] MEDS: BUDESONIDE (INHALATION) 0.5 MG/2 ML NEB NEB SCH ×2 (06:10→22:51)
[2020-05-02] MEDS: NOREPINEPHRINE 8 MG/250ML KIT 250 ML IV SCH ×2 (07:53→14:50)
[2020-05-02] MEDS: ASPirin 81 mg TAB GT SCH (09:45)
[2020-05-02] MEDS: DORZOLAMIDE HCL 2% OPTH(EYE) SOL 10ML EACHEYE SCH ×2 (09:45→22:11)
[2020-05-02] MEDS: ENOXAPARIN SOD 40 MG/0.4 ML SYRINGE SC SCH (09:46)
[2020-05-02] MEDS: FAMOTIDINE (10MG/ML) 2ML VL IV SCH ×2 (09:46→22:11)
[2020-05-02] MEDS: SODIUM CHLOR 0.9% PF (SALINE LOCK) 10ML VIAL/SYR IV SCH ×2 (09:46→22:12)
[2020-05-02] MEDS: PROPOFOL 100 ML IV SCH ×2 (09:50→18:37)
[2020-05-02] MEDS: fentaNYL Drip 2500mCg/250mlNS 250 ML IV SCH ×2 (10:29→23:04)
[2020-05-02] MEDS ORDERED: ROCURONIUM 10MG/ML 10ML VIAL IV PRN ×2 (13:45→15:45)
[2020-05-02] MEDS ORDERED: ROCURONIUM 10MG/ML 10ML VIAL IV ONE (13:52)
[2020-05-02] MEDS ORDERED: SODIUM BICARBONATE 50ML VIAL 150 ML in D5W 5% 1,000 ML IV SCH (16:45)
[2020-05-02] MEDS ORDERED: BUMETANIDE 2.5mg/10ml (0.25 mg/ml) INJ IV ONE (16:45)
[2020-05-02] MEDS ORDERED: SODIUM BICARBONATE 8.4 % INJ 50ML VIAL IV ONE (18:34)
[2020-05-02] MEDS: ALBUMIN 25% 100 ML IV SCH (19:01)
[2020-05-02] MEDS ORDERED: TPN PER PHARMACY IV NR ×9 (20:00)
[2020-05-02] MEDS: LATANOPROST 0.005 % OPTH(EYE) SOL 2.5ML EACHEYE SCH (22:11)
[2020-05-02] MEDS: ATORVASTATIN 20 MG TAB PO SCH (22:12)
[2020-05-03] VITALS (28 sets, daily range): BP systolic 69–99; BP diastolic 36–50
[2020-05-03] MEDS: ALBUMIN 25% 100 ML IV SCH (01:19)
[2020-05-03] MEDS: NOREPINEPHRINE 8 MG/250ML KIT 250 ML IV SCH (03:39)
[2020-05-03 05:15] LABS: Calcium 6.2 mg/dL (8.5-10.1)
[2020-05-03 05:21] LABS: BUN/Creatinine Ratio 46.5; Magnesium 2.5 mg/dL (1.6-2.6); Total Protein 4.9 g/dL (6.4-8.2)
[2020-05-03 05:28] LABS: Potassium 5.6 mmol/L (3.5-5.1)
[2020-05-03] MEDS: MIDAZOLAM DRIP 50 mg/50mL 50 ML IV SCH (05:54)
[2020-05-03] MEDS: CEFEPIME 1 GM in SODIUM CHL 0.9% 50 ML IV SCH (05:54)
[2020-05-03] MEDS: InsuLIN REG 1unit/0.01ml Soln (100units/ml) SC SCH (05:55)
[2020-05-03] MEDS: ACCU-CHEK COMFORT CURVE STRIP VI SCH (05:57)
[2020-05-03] MEDS: BUDESONIDE (INHALATION) 0.5 MG/2 ML NEB NEB SCH (06:15)
[2020-05-03] MEDS ORDERED: CALCIUM GLUC 4.65meq/50ml D5AE 50 ML IV ONE (11:15)
[2020-05-03] MEDS ORDERED: CALCIUM GLUC IV NR ×9 (20:00)
[2020-05-03] MEDS ORDERED: [UNRECOGNIZED DRUG - OTHER] IV NR ×9 (20:00)
[2020-05-03] MEDS ORDERED: SODIUM CHLORIDE IV NR ×9 (20:00)
[2020-05-03] MEDS ORDERED: SODIUM ACETATE IV NR ×9 (20:00)
== END 2020-05-03 08:28 | DRG 130 ==
LOC: EDBD 15:37 → ER 15:43 → OVERFLOW 15:44 → TELE-WESTW 04-03 21:52 → ICU WEST 04-21 01:35
PROVIDERS: ADMIT Nurse Practitioner; ATTEND Internal Medicine
PROC: XW033E5 Introduction of Remdesivir Anti-infective into Peripheral Vein, Percutaneous Approach, New Technology Group 5 (ICD-10-PCS; 2020-04-03)
PROC: XW13325 Transfusion of Convalescent Plasma (Nonautologous) into Peripheral Vein, Percutaneous Approach, New Technology Group 5 (ICD-10-PCS; principal; 2020-04-04)
PROC: 5A0955A Assistance with Respiratory Ventilation, Greater than 96 Consecutive Hours, High Flow/Velocity Cannula (ICD-10-PCS; 2020-04-09)
PROC: XW033H5 Introduction of Tocilizumab into Peripheral Vein, Percutaneous Approach, New Technology Group 5 (ICD-10-PCS; 2020-04-11)
PROC: 02HV33Z Insertion of Infusion Device into Superior Vena Cava, Percutaneous Approach (ICD-10-PCS; 2020-04-21)
PROC: 5A1955Z Respiratory Ventilation, Greater than 96 Consecutive Hours (ICD-10-PCS; 2020-04-21)
PROC: 0BH17EZ Insertion of Endotracheal Airway into Trachea, Via Natural or Artificial Opening (ICD-10-PCS; 2020-04-21)
DX: U07.1 COVID-19 (principal); J12.82 Pneumonia due to coronavirus disease 2019; N17.0 Acute kidney failure with tubular necrosis; G93.41 Metabolic encephalopathy; J96.01 Acute respiratory failure with hypoxia; G93.1 Anoxic brain damage, not elsewhere classified; I10 Essential (primary) hypertension; G20 Parkinson's disease; E87.1 Hypo-osmolality and hyponatremia; Z66 Do not resuscitate; E87.2 Acidosis; J98.11 Atelectasis; R57.9 Shock, unspecified; Z99.11 Dependence on respirator [ventilator] status; B96.89 Other specified bacterial agents as the cause of diseases classified elsewhere; I46.9 Cardiac arrest, cause unspecified; E87.4 Mixed disorder of acid-base balance; Z79.51 Long term (current) use of inhaled steroids; Z79.82 Long term (current) use of aspirin; Z79.899 Other long term (current) drug therapy; Z82.49 Family history of ischemic heart disease and other diseases of the circulatory system; Z83.3 Family history of diabetes mellitus; Z98.2 Presence of cerebrospinal fluid drainage device; J15.6 Pneumonia due to other Gram-negative bacteria; D89.839 Cytokine release syndrome, grade unspecified
CPT/HCPCS: 36415; 36569; 36600; 70450; 71045; 80048; 80053; 82040; 82728; 82805; 82962; 83605; 83615; 83735; 83880; 84100; 84295; 84443; 84478; 84484; 85007; 85025; 85027; 85379; 85610; 85730; 86141; 86850; 86900; 86901; 87040; 87070; 87077; 87081; 87186; 87205; 87426; 93005; 93306; 93970; 93971; 94002; 94003; 94640; A4615; G0378; J0330; J1100; J1815; J2250; J2704; J3480; J3490; J7131; P9047